=== PATIENT | female | born 1990 | race African-American/Black ===

== ENCOUNTER 2024-01-13 17:32 | Emergency (ER) | payer OTHER, SELFPAY ==
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
[2024-01-13 17:46] VITALS: BP 158/76; PULSE 86; RESP 16; TEMP 36.6; O2SAT 100
[2024-01-13 17:47] VITALS: BP 158/76; PULSE 86; RESP 16; TEMP 36.6; O2SAT 100
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
== END 2024-01-13 18:54 | disposition home or self-care (01) ==
PROVIDERS: Emergency Provider Nurse Practitioner Family; PCP Family Medicine
DX: S39.012A Strain of muscle, fascia and tendon of lower back, initial encounter (principal); M54.2 Cervicalgia; B35.8 Other dermatophytoses; Z79.899 Other long term (current) drug therapy; V89.2XXA Person injured in unspecified motor-vehicle accident, traffic, initial encounter
CPT/HCPCS: 72050; 72100; 99213; G0463

== ENCOUNTER 2025-08-26 08:04 | Emergency (ER) | payer OTHER, SELFPAY ==
--- OUTSIDE RECORDS SUMMARY | 2024-12-19 12:30 | XMS_ITS ---
Author Organization [employer] [place] ([address]) Address [address] [place] [address] Care Team Providers Care Diesel Automotive Technician Name Role Phone Ailyn Wymanh Primary Care Provider UnavailBobbi Watson Unavailable [phone] REASON FOR VISIT Chronic upper airway symptoms concerning for uncontrolled atopic disease, Chronic lower airways symptoms concerning for possible asthma Social History Sex Assigned At : Social History Observation Description Sex Assigned At Female Problems Problem Type SNOMED Code ICD Code Onset Dates Problem Status W/U Status Risk Notes Problem Allergic rhinitis caused by pollen (disorder) (22747662) Allergic rhinitis due to pollen (J30.1) Active confirmed Problem Allergic rhinitis caused by animal hair and dander ([id number]) Allergic rhinitis due to animal (cat) (dog) hair and dander (J30.81) Active confirmed Problem Allergic rhinitis (71082730) Other allergic rhinitis (J30.89) Active confirmed Problem Chronic allergic conjunctivitis (75167740) Other chronic allergic conjunctivitis (H10.45) Active confirmed Encounters Encounter Location Date Provider Diagnosis [facility] [address] [facility] [address] [place] [address] 12/19/2024 Bobbi Carolina Allergic rhinitis du e to pollen J30.1 ; Allergic rhinitis due to animal (cat) (dog) hair and dander J30.81 ; Other allergic rhinitis J30.89 ; Other chronic allergic conjunctivitis H10.45 ; Hypertrophy of nasal turbinates J34.3 ; Chronic rhinitis J31.0 ; Moderate persistent asthma, uncomplicated J45.40 ; Mild persistent asthma, uncomplicated J45.30 and Severe persistent asthma, uncomplicated J45.50 Assessments Encounter Date Diagnosis (ICD Code) Assessment Notes Treatment Notes Treatment Clinical Notes Section Notes 12/19/2024 Allergic rhinitis due to pollen (ICD-10 - J30.1) Given the history and symptoms, skin testing was performed to common aeroallergens to determine atopic status. clearly suffers from atopic disease based upon our skin testing and clinical history. Accordingly, we have introduced a new, aggressive medication regimen, discussed nasal washes and allergy-specific avoidance measures. We also discussed adjunctive therapies including subcutaneous, specific allergen immunotherapy as relates to the treatment and prevention of atopic disease. They are currently considering the risks, benefits and alternatives to this care. Risks: bleeding, infection, allergic reaction, anaphylaxis; Benefits: reduced need for medications, improved symptoms, disease modification. Alternatives: watch/wait, change medication regimen, improve allergy avoidance measures. Follow-up in 1 month for interval evaluation and management 12/19/2024 Allergic rhinitis due to animal (cat) (dog) hair and dander (ICD-10 - J30.81) Follow allergen avoidance, meds and consider SCIT as an adjunctive treatment to current regimen 12/19/2024 Other allergic rhinitis (ICD-10 - J30.89) Follow allergen avoidance, meds and consider SCIT as an adjunctive treatment to current regimen 12/19/2024 Other chronic allergic conjunctivitis (ICD-10 - H10.45) Given ocular signs and symptoms I encouraged allergy avoidance measures and meds as above. If symptoms persist, consider adding additional medications including intraocular antihistamine/mas t cell stabilizer, PRN and consider SCIT as an adjunctive measure 12/19/2024 Hypertrophy of nasal turbinates (ICD-10 - J34.3) 12/19/2024 Chronic rhinitis (ICD-10 - J31.0) 12/19/2024 Moderate persistent asthma, uncomplicated (ICD-10 - J45.40) 12/19/2024 Mild persistent asthma, uncomplicated (ICD-10 - J45.30) 12/19/2024 Severe persistent asthma, uncomplicated (ICD-10 - J45.50) Plan Of Treatment Treatment Notes Assessment Notes Allergic rhinitis due to pollen Given th e history and symptoms, skin testing was performed to common aeroallergens to determine atopic status. clearly suffers from atopic disease based upon our skin testing and clinical history. Accordingly, we have introduced a new, aggressive medication regimen, discussed nasal washes and allergy-specific avoidance measures. We also discussed adjunctive therapies including subcutaneous, specific allergen immunotherapy as relates to the treatment and prevention of atopic disease. They are currently considering the risks, benefits and alternatives to this care. Risks: bleeding, infection, allergic reaction, anaphylaxis; Benefits: reduced need for medications, improved symptoms, disease modification. Alternatives: watch/wait, change medication regimen, improve allergy avoidance measures. Follow-up in 1 month for interval evaluation and management Allergic rhinitis due to ani mal (cat) (dog) hair and dander Follow allergen avoidance, meds and consider SCIT as an adjunctive treatment to current regimen Other allergic rhinitis Follow allergen avoidance, meds and consider SCIT as an adjunctive treatment to current regimen Other chronic allergic conjunctivitis Gi nancy ocular signs and symptoms I encouraged allergy avoidance measures and meds as above. If symptoms persist, consider adding additional medications including intraocular antihistamine/mast cell stabilizer, PRN and consider SCIT as an adjunctive measure Next Appt Details Follow Up: 4 Weeks, Reason: Evaluation and Management Progress Notes * Didier CLARKDOB: [birth year] (34 yo F)Acc No.[id number]:12/19/2024 Progress Notes Patient: Sheri NINOkeke Provider: Anthony Carolina MD :1990 A ge:34 Y S ex:Female Date:12/19/2024 Address:[address] [place], [place] [id number] Pcp:Andres Wyman Subjective: * Chief Complaints: * 1 . Chronic upper airway symptoms concerning for uncontrolled atopic disease. 2. Chronic lower airways symptoms concerning for possible asthma. * HPI: * Introduction: HPI: x . * ROS: A LLERGY: Positive p er the HPI and history, otherwise unremarkable.? S PECIAL SENSES: Positve for n one. C ONSTITUTIONAL: Positive for n one. E NT: Positive p er the HPI and history, otherwise unremarkable.? R ESPIRATORY: Positive p er the HPI and history, otherwise unremakable.? O PHTHALMOLOGY: Positive for p er the HPI and history, otherwise unremarkable. E NDOCRINOLOGY: Positive for n one. C ARDIOLOGY: Positive for n one. G ASTROENTEROLOGY: Positive for n one. U ROLOGY: Positive for n one. D ERMATOLOGY: Positive for p er the HPI and history, otherwise unremakable. N EUROLOGY: Positive for n one. H EMATOLOGY/LYMPH: Positive for n one. M USCULOSKELETAL: Positive for n one. P SYCHOLOGY: Positive for n one. A ll other review of systems per the HPI and history, otherwise unremarkable. * Medical History: Objective: * Vitals: * Examination: G eneral examination: General appearance: p leasant, well-developed, well-nourished. HEENT: p upils equal, round, and reactive to light and accommodation, conjunctiva are injected bilaterally, no tenderness to palpation of the sinuses, TM's without evidence of acute infection, turbinates 2+ swollen and pale inferiorly bilaterally, clear rhinorrhea is present, no polyps noted, no septal perforation, posterior oropharynx is erythematous and cobblestoning is present, erythema on pharyngeal wall, no exudates, no tongue swelling, and uvula is midline. Oral cavity: n ormal, no lesions. Neck, thyroid : s upple, non-tender, no anterior cervical lymphadenopathy. Breasts : n ot performed. Heart: R RR, S1-S2, no murmurs, no rubs, no gallops. Lungs: c lear to auscultation and percussion in all lung ramirez, no wheezes or crackles. Abdomen: s oft, NT/ND, normal active bowel sounds. Neurologic exam: u nremarkable. Skin: n ormal, no rash, dermatographism, urticaria, angioedema. Peripheral pulses: n ormal (2+) bilaterally. Back: n ormal. Extremities: n ormal ROM, no clubbing, no cyanosis, no edema. Genitalia: n ot performed. Assessment: * Assessment: 1. A llergic rhinitis due to pollen - J30.1 (Primary) 2 . A llergic rhinitis due to animal (cat) (dog) hair and dander - J30.81 3 . O ther allergic rhinitis - J30.89 4 . O ther chronic allergic conjunctivitis - H10.45 5 . H ypertrophy of nasal turbinates - J34.3 6 . C hronic rhinitis - J31.0? 7. M oderate persistent asthma, uncomplicated - J45.40 8 . M ild persistent asthma, uncomplicated - J45.30 9 . S evere persistent asthma, uncomplicated - J45.50 Plan: * Treatment: 2. A llergic rhinitis due to animal (cat) (dog) hair and dander Notes: Follow allergen avoidance, meds and consider SCIT as an adjunctive treatment to current regimen 3. O ther allergic rhinitis Notes: Follow allergen avoidance, meds and consider SCIT as an adjunctive treatment to current regimen 4. O ther chronic allergic conjunctivitis Notes: Given ocular signs and symptoms I encouraged allergy avoidance measures and meds as above. If symptoms persist, consider adding additional medications including intraocular antihistamine/mast cell stabilizer, PRN and consider SCIT as an adjunctive measure * Procedure Codes: 9 5004 PRICK TESTS, Units: 72.00 , 56197 INTRADERMAL TESTS, 37339 MEASURE BLOOD OXYGEN LEVEL, 97098 SELF-MGMT EDUC & TRAIN, 1 PT, S9441 ASTHMA ED NON-MD PROV PER SESSION, 27762 PT-FOCUSED HLTH RISK ASSMT, G8427 DOC MEDS VERIFIED W/PT OR RE * Preventive Medicine: Counseling: M edication instruction: W atch for side effects of prescribed medications, Nasal steroid/antihistamine instruction: avoid septum. E ducation: G ENERAL EDUCATION: Our staff spent an additional 30 minutes in direct contact with the patient educating them on their current diagnoses and proper treatment and prevention of symptoms and the proper use of medications. E ducation 2: A RC EDUCATION: Our staff discussed the appropriate allergen avoidance measures and medication utilization including upper airway hygiene with daily nasal washes given the patient's clinical status and diagnoses. SCIT EDUCATION: Discussed allergy immunotherapy including the relative risks, benefits and alternatives to this treatment as an adjunctive measure to current therapy, Allergy Immunotherapy: Risks: bleeding, infection, allergic reaction, anaphylaxis = severe allergic reaction that can cause ; Benefits: reduced need for medications, improved symptoms, disease modification. Alternatives: watch/wait, change medication regimen, improve allergy avoidance measures, Our staff discussed the warning signs of anaphylaxis and the indications to use self-injectable epinephrine and seek urgent or emergent care. P atient education material sent to portal? Y es * Follow Up: 4 Weeks (Reason: Evaluation and Management) * Billing Information: * Visit Code: * Procedure Codes: 25048 PRICK TESTS. Units: 72.00. 50339 INTRADERMAL TESTS. 22779 MEASURE BLOOD OXYGEN LEVEL. 18249 SELF-MGMT EDUC & TRAIN, 1 PT. S9441 ASTHMA ED NON-MD PROV PER SESSION. 55871 PT-FOCUSED HLTH RISK ASSMT. G8427 DOC MEDS VERIFIED W/PT OR RE. * Electronic signature of Sofia Carolina MD on 08/26/2025 at 08:15 AM CDT Sign off status: Pending * Provider: Anthony Carolina MD Date: 0 12/19/2024 Generated for Sofiya du/Katiuska/Joyce on: 08:15 AM CDT History and Physical Notes * HPI (History of Present Illness) Category Sub-Category Detail Notes Category Not es *Introduction HPI: x Examination Category Sub-Category Detail Notes Category Not es General examination HEENT: pupils equal , round, and reactive to light and accommodation, conjunctiva are injected bilaterally, no tenderness to palpation of the sinuses, TM's without evidence of acute infection, turbinates 2+ swollen and pale inferiorly bilaterally, clear rhinorrhea is present, no polyps noted, no septal perforation, posterior oropharynx is erythematous and cobblestoning is present, erythema on pharyngeal wall, no exudates, no tongue swelling, and uvula is midline Neck, thyroid : supple, non-tender, no anterior cervical lymphadenopathy Heart: RRR, S1-S2, no murmu rs, no rubs, no gallops Lungs: clear to auscultatio n and percussion in all lung ramirez, no wheezes or crackles Abdomen: soft, NT/ND, normal active bowel sounds Extremities: normal ROM, no clubb ing, no cyanosis, no edema General appearance: pleasant, well-devel oped, well-nourished Skin: normal, no rash, jessy matographism, urticaria, angioedema Neurologic exam: unremarkable Oral cavity: normal, no lesions Breasts : not performed Peripheral pulses: normal (2+) bilatera lly Back: normal Genitalia: not performed
--- OUTSIDE RECORDS SUMMARY | 2025-01-23 12:30 | XMS_ITS ---
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 Name Role Phone Andres Wyman Primary Care Provider UnavailBobbi Watson Unavailable [phone] REASON FOR VISIT Food Allergy Social History Sex Assigned At : Social History Observation Description Sex Assigned At Female Encounters Encounter Location Date Provider Diagnosis [facility] [address] [place] [address] 01/23/2025 Bobbi Carolina Allergic rhinitis du e to pollen J30.1 ; Idiopathic urticaria L50.1 ; Dermatitis due to ingested food L27.2 ; Allergic rhinitis due to animal (cat) (dog) hair and dander J30.81 ; Other allergic rhinitis J30.89 and Other chronic allergic conjunctivitis H10.45 Assessments Encounter Date Diagnosis (ICD Code) Assessment Notes Treatment Notes Treatment Clinical Notes Section Notes 01/23/2025 Allergic rhinitis due to pollen (ICD-10 - J30.1) Given the history and symptoms, skin testing was performed to common aeroallergens to determine atopic status. Didier clearly suffers from atopic disease based upon our skin testing and clinical history. Accordingly, we have introduced a new, aggressive medication regimen, discussed nasal washes and allergy-specific avoidance measures. 01/23/2025 Idiopathic urticaria (ICD-10 - L50.1) Considerations for hives include autoimmune, viral, stress, or idiopathic. Plan to order labwork for further evaluation. Start treatment with Zyrtec 10 mg BID, Famotidine 20 mg BID. Food may be playing a role and continue current avoidance until we get lab results. Follow-up in 1 month. 01/23/2025 Dermatitis due to ingested food (ICD-10 - L27.2) skin testing showed sensitivity to almond, pistachio, hazelnut, walnut, green arellano, milk, oat, pork, sweet potato, rice, salmon, and sesame seed. ImmunoCAPs ordered for further evaluation. For now, continue avoidance of sesame seeds and tree nuts. 01/23/2025 Allergic rhinitis due to animal (cat) (dog) hair and dander (ICD-10 - J30.81) Follow allergen avoidance, meds and consider SCIT as an adjunctive treatment to current regimen 01/23/2025 Other allergic rhinitis (ICD-10 - J30.89) 01/23/2025 Other chronic allergic conjunctivitis (ICD-10 - H10.45) Given ocular signs and symptoms I encouraged allergy avoidance measures and meds as above. If symptoms persist, consider adding additional medications including intraocular antihistamine/mast cell stabilizer, PRN Plan Of Treatment Treatment Notes Assessment Notes Allergic rhinitis due to pollen Given th e history and symptoms, skin testing was performed to common aeroallergens to determine atopic status. Didier clearly suffers from atopic disease based upon our skin testing and clinical history. Accordingly, we have introduced a new, aggressive medication regimen, discussed nasal washes and allergy-specific avoidance measures. Idiopathic urticaria Considerations for hives include autoimmune, viral, stress, or idiopathic. Plan to order labwork for further evaluation. Start treatment with Zyrtec 10 mg BID, Famotidine 20 mg BID. Food may be playing a role and continue current avoidance until we get lab results. Follow-up in 1 month. Dermatitis due to ingested food skin shavonne ting showed sensitivity to almond, pistachio, hazelnut, walnut, green arellano, milk, oat, pork, sweet potato, rice, salmon, and sesame seed. ImmunoCAPs ordered for further evaluation. For now, continue avoidance of sesame seeds and tree nuts. Allergic rhinitis due to ani mal (cat) (dog) hair and dander Follow allergen avoidance, meds and consider SCIT as an adjunctive treatment to current regimen Other chronic allergic conjunctivitis Gi nancy ocular signs and symptoms I encouraged allergy avoidance measures and meds as above. If symptoms persist, consider adding additional medications including intraocular antihistamine/mast cell stabilizer, PRN Next Appt Details Follow Up: 4 Weeks, Reason: Evaluation and Management Progress Notes * Didier CLARKDOB: [birth year] (34 yo F)Acc No.[id number]:01/23/2025 Progress Notes Patient: Didier NINO Provider: Anthony Carolina MD :1990 A ge:34 Y S ex:Female Date:01/23/2025 Address:[address] [place], [place] [id number] Pcp:Andres Wyman Subjective: * Chief Complaints: * 1 . Food Allergy. * HPI: * Introduction: HPI: A ronald Clark, a 34 year old with HTN, chronic urticaria, and food allergy presenting for evaluation of urticaria. She is alone for today's visit. Dana cardenas has a long history of chronic urticaria. She was evaluated by an educational aid in 2016 and at that time, concern that hives were related to food.After stopping almonds, soy products, lenora, sunflower seeds, tree nuts, eggs, shellfish hives started to improve and no flares until about 1 month ago. She is currently avoidingsunflower and tree nuts. She develops hives with tree nuts. Other food has been added back into her diet. H laurence are erythematous and rasied a few centimeters in size. HIves are pruritic and occurring on a daily basis. Skin is currently clear. Hives appear on her extremities and trunk.She is taking Benadryl on a daily basis when hives occur with improvement. Eating TV dinners or processed food causes hives on her face. S he develops rashes with exposure to products containing sunflower seeds or oil. She reports yeast infection from sunflower oil in a body wash. Deodorants with sunflower oil cause a rash. S he has a history of eczema on her wrists. She was evaluated by dermatology and prescribed topical steroids. S he denies a history of physician-diagnosed r ecurrent sinusitis or otitis media, recurrent pneumonia, asthma/RAD, eczema, medication allergies, contact dermatitis, latex allergy, eosinophilic esophagitis or stinging insect hypersensitivity,. * ROS: A LLERGY: Positive p er [...] General appearance: p leasant, well-developed, well-nourished. HEENT: conjunctiva are clear bilaterally, no tenderness to palpation of the sinuses, TM's without evidence of acute infection, turbinates with pink mucosa, c lear rhinorrhea is present, no polyps noted, no septal perforation, posterior oropharynx is clear, no tongue swelling, and uvula is midline. Oral cavity: n ormal, no lesions. Neck, thyroid : s upple, non-tender, no anterior cervical lymphadenopathy. Breasts : n ot performed. Heart: R RR, S1-S2, no murmurs, no rubs, no gallops. Lungs: c lear to auscultation and percussion in all lung ramirez, no wheezes or crackles. Neurologic exam: u nremarkable. Skin: n ormal, no rash, dermatographism, urticaria, angioedema. Peripheral pulses: n ormal (2+) bilaterally. Back: n ormal. Extremities: n ormal ROM, no clubbing, no cyanosis, no edema. Genitalia: n ot performed. Assessment: * Assessment: 1. I diopathic urticaria - L50.1 (Primary) 2 . A llergic rhinitis due to pollen - J30.1 3 . D ermatitis due to ingested food - L27.2 4 .?Allergic rhinitis due to animal (cat) (dog) hair and dander - J30.81 5 . O ther allergic rhinitis - J30.89 6 . O ther chronic allergic conjunctivitis - H10.45 Plan: * Treatment: 2. A llergic rhinitis due to pollen Notes: Given the history and symptoms, skin testing was performed to common aeroallergens to determine atopic status. Didier clearly suffers from atopic disease based upon our skin testing and clinical history. Accordingly, we have introduced a new, aggressive medication regimen, discussed nasal washes and allergy-specific avoidance measures. 3. D ermatitis due to ingested food Notes: skin testing showed sensitivity to almond, pistachio, hazelnut, walnut, green arellano, milk, oat, pork, sweet potato, rice, salmon, and sesame seed. ImmunoCAPs ordered for further evaluation. For now, continue avoidance of sesame seeds and tree nuts. 4. A llergic rhinitis due to animal (cat) (dog) hair and dander Notes: Follow allergen avoidance, meds and consider SCIT as an adjunctive treatment to current regimen 5. O ther chronic allergic conjunctivitis Notes: Given ocular signs and symptoms I encouraged allergy avoidance measures and meds as above. If symptoms persist, consider adding additional medications including intraocular antihistamine/mast cell stabilizer, PRN * Procedure Codes: 9 5004 PRICK TESTS, Units: 85.00 , 09351 PT-FOCUSED [facility] RISK ASSMT, G8427 DOC MEDS VERIFIED W/PT [...] Management) * Billing Information: * Visit Code: 74997 Office Visit, New Pt., Level 4. Modifiers: 25 * Procedure Codes: 15217 PRICK TESTS. Units: 85.00. 10287 PT-FOCUSED [facility] RISK ASSMT. G8427 DOC MEDS VERIFIED W/PT OR RE. * Electronic signature of Sofia Carolina MD on 08/26/2025 at 08:15 AM CDT Sign off status: Pending * Provider: Anthony Carolina MD Date: 0 01/23/2025 Generated for Sofiya du/Katiuska/Daniellesmitting on: 1 08:15 AM CDT History and Physical Notes * HPI (History of Present Illness) Category Sub-Category Detail Notes Category Not es *Introduction HPI: Didier Clark , a 34 year old with HTN, chronic urticaria, and food allergy presenting for evaluation of urticaria. She is alone for today's visit. Didier has a long history of chronic urticaria. She was evaluated by an educational aid in 2016 and at that time, concern that hives were related to food. After stopping almonds, soy products, lenora, sunflower seeds, tree nuts, eggs, shellfish hives started to improve and no flares until about 1 month ago. She is currently avoiding sunflower and tree nuts. She develops hives with tree nuts. Other food has been added back into her diet. Hives are erythematous and rasied a few centimeters in size. HIves are pruritic and occurring on a daily basis. Skin is currently clear. Hives appear on her extremities and trunk. She is taking Benadryl on a daily basis when hives occur with improvement. Eating TV dinners or processed food causes hives on her face. She develops rashes with exposure to products containing sunflower seeds or oil. She reports yeast infection from sunflower oil in a body wash. Deodorants with sunflower oil cause a rash. She has a history of eczema on her wrists. She was evaluated by dermatology and prescribed topical steroids. She denies a history of physician-diagnosed recurrent sinusitis or otitis media, recurrent pneumonia, asthma/RAD, eczema, medication allergies, contact dermatitis, latex allergy, eosinophilic esophagitis or stinging insect hypersensitivity, Examination Category Sub-Category Detail Notes Category Not es General examination HEENT: conjunctiva are clear bilaterally, no tenderness to palpation of the sinuses, TM's without evidence of acute infection, turbinates with pink mucosa, clear rhinorrhea is present, no polyps noted, no septal perforation, posterior oropharynx is clear, no tongue swelling, and uvula is midline Neck, thyroid : supple, non-tender, no anterior cervical lymphadenopathy Heart: RRR, S1-S2, no murmu rs, no rubs, no gallops Lungs: clear to auscultatio n and percussion in all lung ramirez, no wheezes or crackles Abdomen: Extremities: normal ROM, no clubb ing, no cyanosis, no edema General appearance: pleasant, well-devel oped, well-nourished Skin: normal, no rash, jessy matographism, urticaria, angioedema Neurologic exam: unremarkable Oral cavity: normal, no lesions Breasts : not performed Peripheral pulses: normal (2+) bilatera lly Back: normal Genitalia: not performed
--- OUTSIDE RECORDS SUMMARY | 2025-08-26 08:13 | XMS_ITS | Clinical Summary ---
Author Organization [facility] Address [address] [place] [address] Care Team Providers Care Car Hop Name Role Phone Nohemi Vallecillo MD Unavailable Source Comments [facility],non-owned Affiliates and Associated Physician Practices is amultiple site organization consisting of ambulatory clinics and hospital sitesin [place], [place], [place] and [place]. This disclosure is being madepursuant to the Care Everywhere program and may not contain all information available regarding this patient. Last updated 18.[facility] Allergies Active Allergy Reactions Criticality Noted Date Comments Amoxicillin Rash Medium 04/04/2019 Nitrofurantoin 02/16/2012 Sulfa Drugs Rash Low 04/27/2011 Medications * Be aware that medications may not be up to date on this document. Alwaysverify current medications with the patient. diphenhydrAMINE (BENADRYL) 25 MG tablet Take 25 mg by mouth every 4 hours as needed for Itching Active cetirizine (ZYRTEC) 10 MG tablet Take 1 tablet by mouth once daily 03/26/2019 Active valACYclovir (VALTREX) 1 GM tabletIndicatio ns:HSV-2 (herpes simplex virus 2) infection Take 1 tablet by mouth once daily 90 tablet 4 07/31/2019 Active Active Problems Problem Noted Date Diagnosed Date Vitamin D deficiency 03/26/2019 Class 3 severe obesity due t o excess calories without serious comorbidity with body mass index (BMI) of 40.0 to 44.9 in adult 05/16/2018 Mild depression 05/16/2018 Pilonidal cyst 11/01/2017 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 Thyroid nodule 12/23/2015 Seasonal allergic rhinitis 03/26/2014 Obesity (BMI 35.0-39.9 without comorbidity) 04/2013 LGSIL (low grade squamous in traepithelial lesion) on Pap smear 02/14/2013 Cervical high risk HPV (human papillomavirus) te st positive 02/14/2013 Ulcer aphthous oral 11/03/2010 Family history of type 2 diabetes mellitus 11/03 Genital herpes in women 11/19/2009 Screening for condition 10/08/2008 Overview (08/07/2015): Pap Smear: Date:09/24/08, 11/03/2010 Resolved Problems Problem Noted Date Diagnosed Date Resolved Date Obesity 05/14/2013 12/23/2015 Abscess of buttock, left 05/12/2011 Immunizations Immunization Administration Dates Next Due Human Papilloma Virus Quadrivalent Vaccine 02/05,02/09/2012,11/18/2011 INFLUENZA VACCINE, QUADR. (A FLURIA, FLUZONE QUADRIVALENT; 6MO+) (IIV4) 08/16/2014 INFLUENZA VACCINE, QUADR. (F LUZONE; FLULAVAL; FLUARIX; AFLURIA QUADRIVALENT; 6MO+), 0.5 ML (IIV4) 10/12/2017 TDAP (7yrs+) 04/16/2011 Family History Medical History Relation Name Comments High Cholesterol Father Diabetes - Type 2 Maternal Aunt Thyroid Disease Maternal Aunt Thyroidecto my Diabetes - Type 2 Maternal Grandmother Hypertension Maternal Grandmother Thyroid Disease Maternal Grandmother Thyr oidectomy Diabetes - Type 2 Maternal Uncle 1 Diabetes - Type 2 Maternal Uncle 2 Diabetes - Type 2 Maternal Uncle 3 Asthma Mother Hypertension Mother Obesity Mother Pre- DM Relation Name Status Comments Brother 1 Alive Brother 2 Alive Father Alive Maternal Aunt Alive Maternal Grandfather Maternal Grandmother Maternal Uncle 1 Alive Maternal Uncle 2 Alive Maternal Uncle 3 Alive Mother Alive Sister Alive Social History Tobacco Use Types Packs/Day Years Used Date Smoking Tobacco: Never Smokeless Tobacco: Never Alcohol Use Standard Drinks/Week Comments Yes 0.8 (1 standard drink = 0.6 oz p ure alcohol) rarely Comments No Sex and Gender Information Value Date Recorded Sex Assigned at Not on file Legal Sex Female 4:25 AM 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 Gender Identity Not on file Sexual Orientation Not on file 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 Industry Job Start Date Job End 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 Not on file Not on f ile Not on file Last Filed Vital Signs Vital Sign Reading Time Taken Comments Blood Pressure 120/74 06/23/2022 8:17 AM CDT Pulse 80 06/23/2022 8:17 AM CDT Temperature 36.8 C (98.3 F) 04/04/2019 9:43 AM CDT Respiratory Rate 16 10/18/2017 11:42 AM ONCOLOGY RN Oxygen Saturation 98% 06/23/2022 8:17 AM CDT Inhaled Oxygen Concentration - - Weight 114.8 kg (253 lb) 06/23/2022 8:17 AM CDT Height 160 cm (5' 3) 06/23/2022 8:17 AM CDT Body Mass Index 44.82 06/23/2022 8:17 AM CDT Plan of Treatment Health Maintenance Due Date Last Done Comments HEPATITIS B VACCINE (1 of 3 - 19+ 3-dose series) 2007 DTAP/TDAP/TD VACCINES (2 - Td or Tdap) 04/16/2021 04/16/2011 PAP with HPV 07/31/2024 07/31/2019, /, 02/05/2013 DEPRESSION SCREENING 11/07/2024 COVID-19 VACCINE (2024- season) 2025 07/30/2021, 07/02/2021 INFLUENZA VACCINE (#1) 2025 , 08/07/2021, 12/06/2019, Additional history exists ZOSTER VACCINE (1 of 2) 2038 HPV VACCINE Completed 02/05/2013, 02/2012, 11/18/2011 HEPATITIS C SCREENING Completed 01/27/2018, 016 HIV SCREENING Completed 01/27/2018, 06/2016, 11/18/2011, Additional history exists HIB VACCINE Aged Out No longer eligi ble based on patient's age to complete this topic MENINGOCOCCAL (Group B) VACCINE SHARED DECISION-MAKING Aged Out No longer eligible based on patient's age to complete this topic MENINGOCOCCAL GROUPS A/C/Y/W VACCINE Aged Out No longer eligible based on patient's age to complete this topic PNEUMOCOCCAL VACCINE Aged Out No long er eligible based on patient's age to complete this topic Procedures Procedure Name Priority Date/Time Associated Diagnosis Comments PAP IG LB+CT+NG+TV+HPV APTIMA RFLX 16,18/45 Routine 07/31/2019 5:00 PM CDT Well woman exam Screening for HPV (human papillomavirus) Possible exposure to STD HEPATITIS C ANTIBODY Routine 01/27/2018 11:45 AM CDT Exposure to venereal disease HIV-1 HIV-2 ANTIGEN/ANTIBODY W RFLX Routine 01/27/2018 11:45 AM CDT Exposure to venereal disease from Last 3 Months or Most Recently Relevant to Health Maintenance Results * PAP IG LB+CT+NG+TV+HPV APTIMA RFLX 16,18/45 (07/31/2019 5:00 PM CDT) Diagnosis [facility] ACCOUNT BILL Comment: NEGATIVE FOR INTRAEPITHELIAL LESION OR MALIGNANCY. CELLULAR CHANGES ASSOCIATED WITH INFLAMMATION ARE PRESENT. THIS SPECIMEN WAS RESCREENED PART OF OUR OFFICE INSPECTOR PROGRAM. Specimen Adequacy [facility] ACCOUNT BILL Comment: Satisfactory for evaluation. Endocervical and/or squamous metaplastic cells (endocervical component) are present. Clinician Provided ICD10 [facility] ACCOUNT BILL Comment: Z01.419 Z11.51 Z20.2 B00.9 Performed by [facility] ACCOUNT BILL Comment:Temitope Andrew, Cyto technologist (ASCP) QC Reviewed by [facility] ACCOUNT BILL Comment:Myrna Marquez pervisory Project Manager Retail (ASCP) Comment . [facility] ACCOUNT BILL Note [facility] ACCOUNT BILL Comment: The Pap smear is a screening test designed to aid in the detection of premalignant and malignant conditions of the uterine cervix. It is not a diagnostic procedure and should not be used as the sole means of detecting cervical cancer. Both false-positive and false-negative reports do occur. . IGLBP CPT Code Automation [facility] ACCOUNT BILL Comment: This liquid based ThinPrep(R) pap test was screened with the use of an image guided system. Human papillomavirus Aptima Negative Negative [facility] ACCOUNT BILL Comment: This test detects fourteen high-risk HPV types (16/18/31/33/35/39/45/ 51/52/56/58/59/66/68) without differentiation. Chlamydia trachomatis ARNALDO Negative Negative [facility] ACCOUNT BILL GC ARNALDO Negative Negative [facility] ACCOUNT BILL Trichomonas vaginalis by ARNALDO Negative Negative [facility] ACCOUNT BILL ENTIRE VAGINA / Unknown 07/31/2019 5:00 PM CDT 07/31/2019 Narrative [facility] ACCOUNT BILL - 08/03/2019 1:08 PM CDT Source.............Endocervix No. of containers..01 ThinPrep Vial Resulting Agency Comment Lab Testing performed at: [facility] [phone] [place] Izabel Oneill DO LAB - PATHOLOGY/CYTOLOGY ORDERAB LES Final Result [facility] ACCOUNT BILL [address] [place] [address] * HIV-1 HIV-2 ANTIGEN/ANTIBODY W RFLX (01/27/2018 11:45 AM CDT) HIV Screen 4th Generation w Reflex Non Reactive Non Reactive [facility] ACCOUNT BILL Blood BLOOD SPECIMEN / Unknown 01/27/2018 11:45 AM CDT 01/27/2018 Narrative Resulting Agency [facility] [address] [phone] [place] Amina Brown MD LAB - SEROLOGY ORDERABLES Final Result [facility] ACCOUNT BILL [address] [place] [address] * HEPATITIS C ANTIBODY (01/27/2018 11:45 AM CDT) Hepatitis C Antibody Non Reactive Non Reactive [facility] ACCOUNT BILL Comment: Non Reactive - Antibodies to Hepatitis C virus (HCV) were no t detected, result does not exclude early acute HCV infection. Blood BLOOD SPECIMEN / Unknown 01/27/2018 11:45 AM CDT 01/27/2018 Narrative Resulting Agency Comment [facility] [address] [phone] [place] Amina Brown MD LAB - CHEMISTRY ORDERABLES Destinee cota Result [facility] ACCOUNT BILL [address] [place] [address] from Last 3 Months or Most Recently Relevant to Health Maintenance Insurance ANTHEM * Guarantor: APRYL CLARK Account Type Relation to Patient Date of Phone Billing Address Personal/Family 1990 [address] [place] [address] Care Teams Car Hop Relationship Specialty Start Date End Date Nohemi Vallecillo MD [address] [place] [address] Obstetrics and Gynecology 06/23/22
--- OUTSIDE RECORDS SUMMARY | 2025-08-26 08:13 | XMS_ITS | Clinical Summary ---
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 5 Active lisinopriL (PRINIVIL) 20 mg tablet TAKE 1 TABLET BY MOUTH EVERY DAY DIRECTED (DOSE INCREASE) 5 Active BD Ultra-Fine Mini Pen Needle 31 gauge x 3/16 Needle OK FOR GENERIC PEN NEEDLES TO GO WITH SAXENDA DAILY. 5 Active fluticasone propionate (FLONASE) 50 mcg/spray [place], Suspension nasal inhaler Administer 2 Sprays in each nostril daily. Active valACYclovir (Valtrex) 500 mg tabletIndicatio ns:HSV infection Take 1 Tablet (500 mg) by mouth daily. 90 Tablet 3 5 Active metroNIDAZOLE (FLAGYL) 500 mg tablet Take 1 Tablet (500 mg) by mouth 2 times daily. take with meals, avoid alcohol during treatment and for 3 days after last dose 14 Tablet 5 Active Active Problems Problem Noted Date Diagnosed Date Essential hypertension 08/19/2021 Overview (03/18/2025): Now controlled without medication. Blood Pressure 120/74 06/23/2022 8:17 AM CDT Genital herpes in women 11/19/2009 Encounters Date Type Department Care Team Description 07/24/2025 External Device Data [facility]CTION Provider, Abstract 06/26/2025 External Device Data [facility] Provider, Abstract 06/25/2025 External Device Data [facility] Provider, Abstract 06/12/2025 External Device Data [facility] Provider, Abstract 06/11/2025 External Device Data [facility] Provider, Abstract from Last 3 Months Social History Tobacco Use Types Packs/Day Years Used Date Smoking Tobacco: Never Smokeless Tobacco: Never Comments No Sex and Gender Information Value Date Recorded Sex Assigned at Not on file Legal Sex Female 1:41 PM CDT Gender Identity Not on file Sexual Orientation Not on file Last Filed Vital Signs Vital Sign Reading Time Taken Comments Blood Pressure 132/78 03/18/2025 3:20 PM CDT Pulse 78 03/18/2025 3:20 PM CDT Temperature 36.8 C (98.2 F) 04/13/2022 6:11 PM CDT Respiratory Rate 15 03/18/2025 3:20 PM CDT Oxygen Saturation 99% 03/18/2025 3:20 PM CDT Inhaled Oxygen Concentration - - Weight 116.6 kg (257 lb) 03/18/2025 3:20 PM CDT Height 160 cm (5' 3) 04/13/2022 6:11 PM CDT Body Mass Index 45.53 04/13/2022 6:11 PM CDT Plan of Treatment Upcoming Encounters Date Type Department Care Team (Late st Contact Info) Description 03/24/2026 2:45 PM CDT Office Visit [facility] ROOM ATTENDANT - [facility] [address] [place] [address] Thalia Aguirre, DO [address] [place] [address] Health Maintenance Due Date Last Done Comments Pre-Diabetes and Diabetes Screening 1988 HEPATITIS B VACCINES (1 of 3 - 19+ 3-dose series) 2007 HPV/Cotest (21-29) 2009 CERVICAL CANCER SCREENING 2018 HPV/Cotest (30-65) 2018 PAP SMEAR 2018 INFLUENZA VACCINE (#1) 2025 5, 08/17/2023, 08/19/2021, Additional history exists COVID-19 Vaccine ( - 2024-2 6 season) 2025 07/30/2021, 07/02/2021 DTAP/TDAP/TD VACCINES (4 - T d or Tdap) 01/31/2033 01/31/2023, 03/30/2021, 04/16/2011 HPV VACCINES Completed 02/05/2013, 02/2012, 11/18/2011 Insurance [facility]
--- OUTSIDE RECORDS SUMMARY | 2025-08-26 08:13 | XMS_ITS | Clinical Summary ---
Author Organization [facility] Address [address] [address] Phone Care Team Providers Care Insurance Compliance Analyst Name Role Phone Unknown, Notinfile Primary Care Provider Unavail able Allergies No known active allergies Social History Tobacco Use Types Packs/Day Years Used Date Smoking Tobacco: Never Assessed Personal Safety Answer Date Recorded Getting School Help Needed Not on file 11/10 Comments Unknown Sex and Gender Information Value Date Recorded Sex Assigned at Not on file Legal Sex Female 11:55 AM CDT Gender Identity Not on file Sexual Orientation Not on file Plan of Treatment Health Maintenance Due Date Last Done Comments Cervical Cancer Screening 1988 Depression Screening 1988 Hepatitis C Screening 1988 Varicella Vaccines (1 of 2 - 13+ 2-dose series) 2001 Hepatitis B Screening 2006 Regular Well Visit/Exam 18-64 2006 Covid-19 Vaccine ( season) 2025 07/30/2021, 07/02/2021 Influenza Vaccine (#1) 2025 , 12/06/2019, 10/12/2017, Additional history exists DTaP/Tdap/Td Vaccine (4 - Td or Tdap) 03/30/2031 03/30/2021, 10/16/2014, 04/16/2011 HPV Vaccines Completed 02/05/2013, 02/2012, 11/18/2011 Pneumococcal vaccine <65 Aged Out No longer eligible based on patient's age to complete this topic Insurance BLUE ACCESS OOS BLUE ACCESS OOS BLUE ACCESS OOS Care Teams Insurance Compliance Analyst Relationship Specialty Start Date End Date Unknown, Notinfile PCP - General 04/22/22
--- OUTSIDE RECORDS SUMMARY | 2025-08-26 08:13 | XMS_ITS | Encounter Summary ---
Author Organization [facility] Address [address] [place] [address] Care Team Providers Care Injection Moulding Machine Operator Name Role Phone Amina Brown MD Primary Care Provider [phone] Nohemi Vallecillo MD Unavailable Amina Brown MD Unavailable [phone] Encounter Details Date Type Department Care Team (Late st Contact Info) Description 10/26/2017 [facility] Outpatient Visit [facility] [address] [place] [address] [place] [address] [place] [id number] Social History Tobacco Use Types Packs/Day Years Used Date Smoking Tobacco: Never Smokeless Tobacco: Never Alcohol Use Standard Drinks/Week Comments Yes 0.8 (1 standard drink = 0.6 oz p ure alcohol) rarely Comments No Sex and Gender Information Value Date Recorded Sex Assigned at Not on file Legal Sex Female 4:25 AM RN CARDIOVASCULAR ICU Gender Identity Not on file Sexual Orientation Not on file documented as of this encounter Functional Status * Is person deaf or have serious hearing difficulty? Answer Date of Assessment Author No 10/18/2017 11:45 AM Iliana Gilbert RN * Is person blind or have serious difficulty seeing? Answer Date of Assessment Author No 10/18/2017 11:45 AM Iliaan Gilbert RN * Does person have serious difficulty walking/climbing stairs? Answer Date of Assessment Author No 10/18/2017 11:45 AM Iliana Gilbert RN * Does person have difficulty dressing/bathing? Answer Date of Assessment Author No 10/18/2017 11:45 AM Iliana Gilbert RN * Does person have difficulty doing errands alone? Answer Date of Assessment Author No 10/18/2017 11:45 AM Iliana Gilbert RN documented as of this encounter Mental Status * Does person have difficulty concentrating/remembering/making decisions? Answer Entry Date Author No 10/18/2017 11:45 AM Iliana Gilbert RN documented in this encounter Plan of Treatment Not on file documented as of this encounter Visit Diagnoses Not on filedocumented in this encounter Care Teams Injection Moulding Machine Operator Relationship Specialty Start Date End Date Amina Brown MD PCP - General 10/08/08 06/22/22 Amina Brown MD [address] [place] [phone] PCP - Attributed-[employer] 01/14/18 01/20/20 Nohemi Vallecillo MD [address] [place] [id number] Obstetrics and Gynecology 06/23/22 documented as of this encounter
--- OUTSIDE RECORDS SUMMARY | 2025-08-26 08:14 | XMS_ITS | Clinical Summary ---
Author Organization [facility] Address [address] [place] [address] Phone [email or web address] Care Team Providers Care Double End Chucking Machine Operator Name Role Phone Unavailable Primary Care Provider Unavailabl e Allergies Active Allergy Reactions Criticality Noted Date Comments Amoxicillin Hives,Itching,Rash Low 11/23/2019 Penicillins Hives 03/31/2021 Soy Allergy (Obsolete) Hives,Itching,Rash Low 11/23 Sulfa Antibiotics Hives,Itching,Rash Low 11/23/2019 [place] Oil Hives,Itching,Rash Low 11/23/2019 Medications levonorgestrel (MIRENA) 20 MCG/24HR IUD 1 each by Intrauterine route 1 (one) time. Active diphenhydrAMINE (SOMINEX) 25 MG tablet Take 50 mg by mouth. Active methocarbamol (ROBAXIN) 750 MG tabletIndication s:Carpal tunnel syndrome of left wrist Take 1 tablet (750 mg total) by mouth 4 (four) times a day for 10 days. 30 tablet 1 Active ibuprofen (MOTRIN) 800 MG tabletIndication s:Carpal tunnel syndrome of left wrist Take 1 tablet (800 mg total) by mouth every 8 (eight) hours if needed for headaches for up to 30 doses. 30 tablet 1 Active Cholecalciferol (Vitamin D3) 25 MCG (1000 UT) capsuleIndicatio ns:Vitamin D deficiency USE DIRECTED 100 capsule 2 Active amLODIPine (NORVASC) 5 MG tabletIndication s:Essential hypertension TAKE 1 TABLET(5 MG) BY MOUTH 1 TIME EACH DAY 90 tablet 2 Active Active Problems Problem Noted Date Diagnosed Date Essential hypertension 08/19/2021 Overview (09/01/2022): Now controlled without medication. Blood Pressure 120/74 06/23/2022 8:17 AM CDT Eczema 08/19/2021 Carpal tunnel syndrome of left wrist 08/19/2021 Elevated blood pressure affe cting in third trimester, antepartum 05/19/2021 Multinodular thyroid 01/17/2020 Morbid obesity 01/17/2020 BMI 40.0-44.9, adult 01/17/2020 Vitamin D deficiency 12/06/2019 Family history of diabetes mellitus 12/06/2019 Allergic rhinitis due to pollen 12/06/2019 Herpes simplex vulvovaginitis 11/23/2019 GERD (gastroesophageal reflux disease) 9 Overview (12/06/2019): 2007 Immunizations Immunization Administration Dates Next Due Covid-19 (Moderna [place], 12yrs+) (CVX-207) 2020,07/02/2021 Influenza, (Afluria Fluarix Flulaval Fluzone) quad, PF (CVX-150) 08/19/2021,12/06/2019 Td (TdVax), adult, 2 Lf teta nus toxoid, PF, adsorbed (CVX-09) 10/16/2014 Tdap (ADACEL BOOSTRIX) (CVX-115) 03/30/2021 Family History Medical History Relation Name Comments Cancer Father Deni Dugan Prostate cancer Hypertension Mother Rosalva dugan Relation Name Status Comments Father Deni Dugan Mother Rosalva dugan Social History Tobacco Use Types Packs/Day Years Used Date Smoking Tobacco: Never Smokeless Tobacco: Never Tobacco Cessation:Counseling Given: No Alcohol Use Standard Drinks/Week Comments Yes 0 (1 standard drink = 0.6 oz pur e alcohol) Occasionally Intimate Partner Violence Answer Date R ecorded Insults You Not on file 02/16/2021 Threatens You Not on file 02/16/2021 Screams at You Not on file 02/16/2021 Physically Hurt Not on file 02/16/2021 Intimate Partner Violence Score Not on file 02/16/2021 Alcohol Use Answer Date Recorded Alcohol Use Status Yes 08/19/2021 Depression Answer Date Recorded PHQ Total Score Not on file 08/20/2022 Stress Answer Date Recorded Stress in your Life Not on file 08/20/2022 Dealing with Stress Not on file 08/20/2022 Physical Activity Answer Date Recorded How often do you engage in m oderate physical activity for 30 minutes or more? Never 08/19/2021 How often do you engage in v igorous physical activity for 20 minutes or more? Never 08/19/2021 How many hours per day do you spend sitting? 6 t o 8 hours 08/19/2021 Education Answer Date Recorded What is the highest level of school you have completed or the highest degree you have received? 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 Not on file Not on file Last Filed Vital Signs Vital Sign Reading Time Taken Comments Blood Pressure 120/74 06/23/2022 8:00 AM CDT See nitrate operator visit on 06/23/2022 Pulse 80 06/23/2022 8:00 AM CDT Temperature 37 C (98.6 F) 08/19/2021 10:45 AM CDT Respiratory Rate 18 08/19/2021 9:11 AM CDT Oxygen Saturation 97% 08/19/2021 9:1 1 AM CDT Inhaled Oxygen Concentration - - Weight 106 kg (234 lb 8 oz) 08/19/2021 9:11 AM CDT Height 161.3 cm (5' 3.5) 08/19/2021 9: 11 AM CDT Body Mass Index 40.89 08/19/2021 9:11 AM CDT Plan of Treatment Health Maintenance Due Date Last Done Comments HPV only / HPV + Pap 1988 Hepatitis B Immunization (1 of 3 - 19+ 3-dose series) 2007 Dental Cleaning/Exam 01/16/2021 01/17/2020, 09/06/2019 Cervical Cancer Screening Combo 08/03/2022 Pap only testing 08/03/2022 08/03/2019 Covid-19 Immunization ( season) 2025 07/30/2021, 07/02/2021 Influenza Immunization (#1) 07/08/202508/07, 12/06/2019, 12/06/2019 Tetanus Diphtheria and Pertussis Immunization (4 - Td or Tdap) 03/30/2031 03/30/2021, 10/16/2014, 04/16/2011 HPV Immunization Completed 02/05/2013, 02/09/2012, 11/18/2011 HIB Immunization Aged Out No longer e ligible based on patient's age to complete this topic Hepatitis A Immunization Aged Out No longer eligible based on patient's age to complete this topic Pneumococcal Immunization Aged Out No longer eligible based on patient's age to complete this topic Polio Immunization Aged Out No longer eligible based on patient's age to complete this topic Varicella Immunization Aged Out No lo nger eligible based on patient's age to complete this topic Goals Goal Patient Goal Type Associated Problems Recent Progress Patient-Stated? Author I will do 30 min cardio before work 3 times a week General On track( 3:04 PM CDT) Yes Crala Muro RD I will walk 10 min at work 5 times a week General On track( 3:04 PM CDT) Yes Carla Muro RD I will take stairs more often General Yes Carla Muro RD I will increase my intake of fruits and veggies General On track( 3:04 PM CDT) Yes Carla Muro RD I will eat lower fat cheese General Yes Carla Muro RD I will add 30-45 min home workout in the morning and continue my walks (75 to 90 min/day). General On track( 3:04 PM CDT) Yes Carla Muro RD I will continue my exercise routine General On track( 3:04 PM CDT) Yes Carla Muro RD I will add more fruit and veg to meals. Have one at each meal. General On track( 3:04 PM CDT) Yes Carla Muro RD I will limit limit cheese. General On track( 3:04 PM CDT) Yes Carla Muro RD I will add veggies to lunch General On track( 3:04 PM CDT) Yes Carla Muro RD I will decrease my meat intake (sausage, etc). General On track( 3:04 PM CDT) Yes Carla Muro RD I will track what I eat on [employer] General Yes Carla Muro RD Increase fruit to 2 times a day. General Improving(01/2020 4:27 PM CDT) Yes Carla Muro RD Cont exercise General On track( 4:27 PM CDT) Yes Carla Muro RD I will increase my fruit intake. General Yes Carla Muro RD I will increase my calcium intake. General Yes Carla Muro RD I will walk 20-30 minutes and do strength training 5 times a week. General Yes Carla Muro RD Insurance [facility] NO COPAY
--- OUTSIDE RECORDS SUMMARY | 2025-08-26 08:14 | XMS_ITS | Patient Health Record ---
Author Organization [facility] [place] ([address]) Address [address] [place] [address] Care Team Providers Care Vaccine Specialist Name Role Phone Andres Wyman Primary Care Provider Bobbi Souza Unavailable [phone] Allergies Allergen (clinical drug ingredient) Drug/Non Drug Allergy documented on EMR Reaction Allergy Type Onset Date Status Substance with sulfonamide structure and antibacterial mechanism of action (substance) sulfa drugs (uncoded) hives in 2017 Allergy Active Penicillin hives in 2017 with surgery for a boil Drug Allergy Active Results Component Value Reference Range Notes -Immunoglobulin E, Total Reviewed date:01/07/2025 03:00:22 PM Interpretation:Normal Performing Lab:[facility] [address] [id number], Phone - [phone], Director - Jett Notes/Report: or for research. clinical purposes. These should not be regarded as investigational clearance or approval is not necessary. These tests are used for Food and Drug Administration. The FDA has determined that such [facility]. These tests have not been cleared or approved by the [place] were developed and had performance characteristics determined by Test(s) 824031-[id number]-RcG [place] Immunoglobulin E, Total 243 6-495 IU/mL -CBC With Differential/Plate let Reviewed date:01/03/2025 11:30:05 AM Interpretation:Normal Performing Lab:[facility] [address] [id number], Phone - [phone], Director - Bill Notes/Report: WBC 6.9 3.4-10.8 x10E3/uL RBC 4.17 3.77-5.28 x10E6/uL Hemoglobin 13.0 11.1-15.9 g/dL Hematocrit 39.8 34.0-46.6 % MCV 95 79-97 fL MCH 31.2 26.6-33.0 pg MCHC 32.7 31.5-35.7 g/dL RDW 12.3 11.7-15.4 % Platelets 324 150-450 x10E3/uL Neutrophils 66 Not Estab. % Lymphs 25 Not Estab. % Monocytes 7 Not Estab. % Eos 1 Not Estab. % Basos 0 Not Estab. % Neutrophils (Absolute) 4.5 1.4-7.0 x10E3/uL Lymphs (Absolute) 1.7 0.7-3.1 x10E3/uL Monocytes(Absolute) 0.5 0.1-0.9 x10E3/uL Eos (Absolute) 0.1 0.0-0.4 x10E3/uL Baso (Absolute) 0.0 0.0-0.2 x10E3/uL Immature Granulocytes 1 Not Estab. % Immature Grans (Abs) 0.1 0.0-0.1 x10E3/uL -F054 Sweet Potato Reviewed date:01/07/2025 03:00:30 PM Interpretation:Normal Performing Lab:[facility] [id number], Phone - [phone], Director - Jett Notes/Report: or for research. clinical purposes. These should not be regarded as investigational clearance or approval is not necessary. These tests are used for Food and Drug Administration. The FDA has determined that such [facility]. These tests have not been cleared or approved by the [place] were developed and had performance characteristics determined by Test(s) 588124-D867-MrM [place] X614-FiH Sweet Potato <0.10 Class 0 kU/L -IgE Hazelnut w/ Component R eflex Reviewed date:01/07/2025 03:00:06 PM Interpretation:Normal Performing Lab:[facility] [id number], Phone - [phone], Director - [facility] Notes/Report: Test(s) 346241-O817-UvX Green Haq were developed and had performance characteristics determined by [facility]. These tests have not been cleared or approved by the U.S. Food and Drug Administration. The FDA has determined that such clearance or approval is not necessary. These tests are used for clinical purposes. These should not be regarded as investigational or for research. F825-ExG Hazelnut (Filbert) <0.10 Class 0 kU/L -IgE [place] w/ Component Ref maxine Reviewed date:01/07/2025 02:59:36 PM Interpretation:Normal Performing Lab:[facility] [id number], Phone - [phone], Director [facility] Notes/Report: Test(s) 479477-T516-KtA Green Haq were developed and had performance characteristics determined by [facility]. These tests have not been cleared or approved by the U.S. Food and Drug Administration. The FDA has determined that such clearance or approval is not necessary. These tests are used for clinical purposes. These should not be regarded as investigational or for research. V034-AtH [place] <0.10 Class 0 kU/L -IgE Milk w/ Component Refle x Reviewed date:01/07/2025 02:59:20 PM Interpretation:Normal Performing Lab:[address] [id number], Phone - [phone], Director [facility] Notes/Report: Test(s) 032249-U904-FwN Green Haq were developed and had performance characteristics determined by [facility]. These tests have not been cleared or approved by the U.S. Food and Drug Administration. The FDA has determined that such clearance or approval is not necessary. These tests are used for clinical purposes. These should not be regarded as investigational or for research. Class Description Levels of Specific IgE Class Description of Class ----- < 0.10 0 Negative 0.10 - 0.31 0/I Equivocal/Low 0.32 - 0.55 I Low 0.56 - 1.40 II Moderate 1.41 - 3.90 III High 3.91 - 19.00 IV Very High 19.01 - 100.00 V Very High >100.00 Very High V812-WsR Milk <0.10 Class 0 kU/L -F203 Pistachio Nut Reviewed date:01/07/2025 02:59:28 PM Interpretation:Normal Performing Lab:[address] [id number], Phone - [phone], Director - [facility] Notes/Report: Test(s) 121013-Z137-RdR Green Haq were developed and had performance characteristics determined by [facility]. These tests have not been cleared or approved by the [place]. Food and Drug Administration. The FDA has determined that such clearance or approval is not necessary. These tests are used for clinical purposes. These should not be regarded as investigational or for research. O559-LcC Pistachio Nut <0.10 Class 0 kU/L -TSH Rfx on Abnormal to Free T4 Reviewed date:01/03/2025 11:29:37 AM Interpretation:Normal Performing Lab:[address] [id number], Phone - [phone], Director - [facility] Notes/Report: TSH 0.497 0.450-4.500 uIU/mL -F315 Green Haq Reviewed date:01/07/2025 02:59:03 PM Interpretation:Normal Performing Lab:[address] [id number], Phone - [phone], Director - [facility] Notes/Report: Test(s) 800630-J494-UtT Green Haq were developed and had performance characteristics determined by [facility]. These tests have not been cleared or approved by the [place]. Food and Drug Administration. The FDA has determined that such clearance or approval is not necessary. These tests are used for clinical purposes. These should not be regarded as investigational or for research. T924-FdR [place]q <0.10 Class 0 kU/L -F040 Tuna Reviewed date:01/17/2025 09:40:55 AM Interpretation:Normal Performing Lab:[address] [id number], Phone - [phone], Director [facility] Notes/Report: N172-KvO Tuna <0.10 Class 0 kU/L -F010 Sesame Seed Reviewed date:01/07/2025 02:59:53 PM Interpretation:Normal Performing Lab:[address] [id number], Phone - [phone], Director - [facility] Notes/Report: Test(s) 815678-H765-TdZ Green Haq were developed and had performance characteristics determined by [facility]. These tests have not been cleared or approved by the U.S. Food and Drug Administration. The FDA has determined that such clearance or approval is not necessary. These tests are used for clinical purposes. These should not be regarded as investigational or for research. B891-TaQ Sesame Seed <0.10 Class 0 kU/L -F041 Ferguson Reviewed date:01/17/2025 09:40:48 AM Interpretation:Normal Performing Lab:[address] [id number], Phone - [phone], Director - [facility] Notes/Report: J350-PaY [place] <0.10 Class 0 kU/L -F009 Rice Reviewed date:01/17/2025 09:40:40 AM Interpretation:Normal Performing Lab:[address] [id number], Phone - [phone], Director [facility] Notes/Report: D513-AoU Rice <0.10 Class 0 kU/L -F035 Potato, White Reviewed date:01/07/2025 02:58:55 PM Interpretation:Normal Performing Lab:[address] [id number], Phone - [phone], Director - [facility] Notes/Report: Test(s) 770445-L545-GwQ Green Haq were developed and had performance characteristics determined by [facility]. These tests have not been cleared or approved by the [place].S. Food and Drug Administration. The FDA has determined that such clearance or approval is not necessary. These tests are used for clinical purposes. These should not be regarded as investigational or for research. C632-EfP Potato, White <0.10 Class 0 kU/L -F007 Oat Reviewed date:01/07/2025 03:00:39 PM Interpretation:Normal Performing Lab:[facility] [id number], Phone - [phone], Director - [facility] Notes/Report: Test(s) 730169-U171-JqO Green Haq were developed and had performance characteristics determined by [facility]. These tests have not been cleared or approved by the [place].S. Food and Drug Administration. The FDA has determined that such clearance or approval is not necessary. These tests are used for clinical purposes. These should not be regarded as investigational or for research. O213-IaX Oat <0.10 Class 0 kU/L -F020 [place] Reviewed date:01/07/2025 02:59:45 PM Interpretation:Normal Performing Lab:[facility] [id number], Phone - [phone], Director - [facility] Notes/Report: Test(s) 523979-H743-UlM Green Haq were developed and had performance characteristics determined by [facility]. These tests have not been cleared or approved by the [place].S. Food and Drug Administration. The FDA has determined that such clearance or approval is not necessary. These tests are used for clinical purposes. These should not be regarded as investigational or for research. U970-IdX [place] <0.10 Class 0 kU/L -F026 Pork Reviewed date:01/17/2025 09:54:52 AM Interpretation:Normal Performing Lab:[address] [id number], Phone - [phone], Director - [facility] Notes/Report: Test(s) 394412-X415-RqB Green Haq were developed and had performance characteristics determined by [facility]. These tests have not been cleared or approved by the [place].S. Food and Drug Administration. The FDA has determined that such clearance or approval is not necessary. These tests are used for clinical purposes. These should not be regarded as investigational or for research. D428-OqS Pork <0.10 Class 0 kU/L -U381-XiN [place]ckley Seed Reviewed date:01/07/2025 03:00:15 PM Interpretation:Normal Performing Lab:[facility] [place], [address] [place] [address], [place], [place] [id number], Phone - [phone], Director - Jett Notes/Report: Test(s) 811092-X955-MvZ Green Haq were developed and had performance characteristics determined by [facility]. These tests have not been cleared or approved by the [place].S. Food and Drug Administration. The FDA has determined that such clearance or approval is not necessary. These tests are used for clinical purposes. These should not be regarded as investigational or for research. Q999-PuI [place] Seed <0.10 Class 0 kU/L -Sedimentation Rate-Westergr en Reviewed date:01/03/2025 11:30:20 AM Interpretation:Normal Performing Lab:[facility] [address] [id number], Phone - [phone], Director - Bill Notes/Report: Sedimentation Rate-Westergren 17 0-32 mm/hr -CMP (14) Reviewed date:01/03/2025 11:29:49 AM Interpretation:Normal Performing Lab:[facility] [address] [id number], Phone - [phone], Director - Bill Notes/Report: Glucose 80 70-99 mg/dL BUN 12 6-20 mg/dL Creatinine 0.72 0.57-1.00 mg/dL eGFR 111 >59 mL/min/1.73 BUN/Creatinine Ratio 17 9-23 Sodium 139 134-144 mmol/L Potassium 4.7 3.5-5.2 mmol/L Chloride 101 96-106 mmol/L Carbon Dioxide, Total 25 20-29 mmol/L Calcium 9.4 8.7-10.2 mg/dL Protein, Total 7.2 6.0-8.5 g/dL Albumin 4.3 3.9-4.9 g/dL Globulin, Total 2.9 1.5-4.5 g/dL Bilirubin, Total 0.5 0.0-1.2 mg/dL Alkaline Phosphatase 76 44-121 IU/L AST (SGOT) 9 0-40 IU/L ALT (SGPT) 13 0-32 IU/L Reason For Referral No Information Medications Medication SIG (Take, Route, Fr equency, Duration) Notes Start Date End Date Status Saxenda 18 MG/3ML INJECT 3MG ONCE A DA Y DIRECTED. Subcutaneous; Duration: 30 Days Active Lisinopril 20 MG TAKE 1 TABLET BY ZENY TH EVERY DAY DIRECTED (DOSE INCREASE) Oral; Duration: 90 Days Active Social History Tobacco Use: Social History Observation Description Date Details (start date - stop date) Never Smoker NA - NA Sex Assigned At : Social History Observation Description Sex Assigned At Female Tobacco Control (Standard) Question Answer Notes Tobacco use: Nonsmoker Problems Problem Type SNOMED Code ICD Code Onset Dates Problem Status W/U Status Risk Notes Problem Chronic allergic conjunctivitis (55595513) Other chronic allergic conjunctivitis (H10.45) Active confirmed Problem Allergic rhinitis caused by pollen (disorder) (97470071) Allergic rhinitis due to pollen (J30.1) Active confirmed Problem Allergic rhinitis (95177671) Other allergic rhinitis (J30.89) Active confirmed Problem Allergic rhinitis caused by animal hair and dander (405979428254698) Allergic rhinitis due to animal (cat) (dog) hair and dander (J30.81) Active confirmed Vital Signs Blood pressure diastolic 85 mm Hg 01/02/2025 Oximetry 99 % 01/02/2025 Height 63 in 01/02/2025 Blood pressure systolic 130 mm Hg 01/02/2025 Weight 240.8 lbs 01/02/2025 BMI 42.65 kg/m2 01/02/2025 Encounters Encounter Location Date Provider Diagnosis [facility] [address] [address] 01/02/2025 Bobbi [place] Allergic rhinitis du e to pollen J30.1 ; Idiopathic urticaria L50.1 ; Dermatitis due to ingested food L27.2 ; Allergic rhinitis due to animal (cat) (dog) hair and dander J30.81 ; Other allergic rhinitis J30.89 and Other chronic allergic conjunctivitis H10.45 Assessments Encounter Date Diagnosis (ICD Code) Assessment Notes Treatment Notes Treatment Clinical Notes Section Notes 01/02/2025 Allergic rhinitis due to pollen (ICD-10 - J30.1) Given the history and symptoms, skin testing was performed to common aeroallergens to determine atopic status. Didier clearly suffers from atopic disease based upon our skin testing and clinical history. Accordingly, we have introduced a new, aggressive medication regimen, discussed nasal washes and allergy-specific avoidance measures. 01/02/2025 Idiopathic urticaria (ICD-10 - L50.1) Considerations for hives include autoimmune, viral, stress, or idiopathic. Plan to order labwork for further evaluation. Start treatment with Zyrtec 10 mg BID, Famotidine 20 mg BID. Food may be playing a role and continue current avoidance until we get lab results. Follow-up in 1 month. 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 ImmunoCAPs ordered for further evaluation. For now, continue avoidance of sesame seeds and tree nuts. 01/02/2025 Allergic rhinitis due to animal (cat) (dog) hair and dander (ICD-10 - J30.81) Follow allergen avoidance, meds and consider SCIT as an adjunctive treatment to current regimen 01/02/2025 Other allergic rhinitis (ICD-10 - J30.89) 01/02/2025 Other chronic allergic conjunctivitis (ICD-10 - H10.45) Given ocular signs and symptoms I encouraged allergy avoidance measures and meds as above. If symptoms persist, consider adding additional medications including intraocular antihistamine/mast cell stabilizer, PRN Plan Of Treatment No Information Insurance Providers Payer Name Payer Address Payer Phone Subscriber Number Group Number Insured Name Patient Relationship to Insured Coverage Start Date Coverage End Date [employer] [address] [address] [facility] [place] [address] [id number] Didier Coker Self - patient is the insured 4 Medical (General) History Medical History History ICD Code high blood pressure Surgical History Surgery Date(Month/Year) c section 05/2021 boil removal 2016 Hospitalization History Reason Date(Month/Year) See Above
--- OUTSIDE RECORDS SUMMARY | 2025-08-26 08:15 | XMS_ITS | Data Portability ---
Author Organization [place] - [facility], Main Office Address [address] [place] [address] Care Team Providers Care Stretcher And Drier Name Role Phone ANDRES WYMAN Primary Care Provider Assessment Encounter Date Assessment Date Assessment LastModified by Organization Details LastModified Time 11/27/2024 11/27/2024 33 yo F with - WT LOSS PROGRAM - SUBCLINICAL HYPERTHYROIDIS M, new - HTN - JEWELS - VIT D DEFICIENCY - OBESITY III - H/O GESTATIONAL HTN US neck: 07/06/24. Annual labs: 03/07/24. X-ray C & L spine: 01/13/24. Sleep study: 06/22/23. Sleep study: 03/23/23. Annual labs: 01/31/23. Wt: 270(02/21/23) - 256(03/21/23) - 257(04/21/23) - 251(05/30/23) - 247(06/30/23) - 240(08/17/23) [Pt stopped] Wt: 228(07/23/24) - 231(11/27/24) D/w pt in detail about her findings, recent labs & imagines and further plan of care. Will refer pt to top lift compressor. Meds as directed. Diet and exercise explained in detail. Educated about different options for her. BP diary education given and call us if any concerns. F/u with Cardiac Nurse Practitioner as per schedule. F/u with Pulmo as per schedule. Cont f/u with Gyne as per schedule. Cont f/u with Ophtho as per schedule. Cont f/u with Derm as per schedule. HM: WWE - 03/30/24, normal as per pt. Cont f/u with Gyne/SPRIGGER as per schedule. Mammo - Never. Aunt had breast CA. Cont f/u with Gyne/SPRIGGER. Flu - 11/27/24. Tdap - 01/31/23. Gardasil - Pt had it in the past. F/u in 2 months. TSH, FT4, FT3 before next visit. Annual labs in 03/31. [email or web address] Not available 11/27/2024 11:15:21 03/14/2025 03/14/2025 34 yo F with - SUBCLINICAL HYPERTHYROIDIS M, chronic - HTN - JEWELS - VIT D DEFICIENCY - OBESITY III - H/O GESTATIONAL HTN US neck: 07/06/24. Annual labs: 03/07/24. X-ray C & L spine: 01/13/24. Sleep study: 06/22/23. Sleep study: 03/23/23. Annual labs: 01/31/23. Wt: 270(02/21/23) - 256(03/21/23) - 257(04/21/23) - 251(05/30/23) - 247(06/30/23) - 240(08/17/23) [Pt stopped] Wt: 228(07/23/24) - 231(11/27/24) - 244(03/14/25) [stop] D/w pt in detail about her findings, recent labs & imagines and further plan of care. All meds verified with pt. Meds as directed. Diet and exercise explained in detail. Educated about different options for her. BP diary education given and call us if any concerns. F/u with Pulmo as per schedule. Cont f/u with Cardiac Nurse Practitioner as per schedule. Cont f/u with Gyne as per schedule. Cont f/u with Ophtho as per schedule. Cont f/u with Derm as per schedule. HM: WWE - 03/30/24, normal as per pt. Cont f/u with Gyne/SPRIGGER as per schedule. Mammo - Never. Aunt had breast CA. Cont f/u with Gyne/SPRIGGER. Flu - 11/27/24. Tdap - 01/31/23. Gardasil - Pt had it in the past. F/u in 1-2 months. Annual labs in 03/31. [email or web address] Not available 03/14/2025 11:44:31 06/06/2025 06/06/2025 34 yo F with - SUBCLINICAL HYPERTHYROIDIS M, chronic - HTN - JEWELS - VIT D DEFICIENCY - OBESITY III - H/O GESTATIONAL HTN US neck: 07/06/24. Annual labs: 03/07/24. X-ray C & L spine: 01/13/24. Sleep study: 06/22/23. Sleep study: 03/23/23. Annual labs: 01/31/23. Wt: 270(02/21/23) - 256(03/21/23) - 257(04/21/23) - 251(05/30/23) - 247(06/30/23) - 240(08/17/23) [Pt stopped] Wt: 228(07/23/24) - 231(11/27/24) - 244(03/14/25) [stop] D/w pt in detail about her findings, recent labs & imagines and further plan of care. All meds verified with pt. Meds as directed. Diet and exercise explained in detail. Educated about different options for her. BP diary education given and call us if any concerns. F/u with Pulmo as per schedule. Cont f/u with Cardiac Nurse Practitioner as per schedule. Cont f/u with Gyne as per schedule. Cont f/u with Ophtho as per schedule. Cont f/u with Derm as per schedule. HM: WWE - 03/01, normal as per pt. Cont f/u with Gyne/SPRIGGER as per schedule. Mammo - Never. Aunt had breast CA. Cont f/u with Gyne/SPRIGGER. Flu - 11/27/24. Tdap - 01/31/23. Gardasil - Pt had it in the past. F/u in 1-2 months. Annual labs in 03/31. [email or web address] Not available 06/06/2025 10:21:05 06/27/2025 06/27/2025 34 yo F with - WELL ADULT VISIT - SUBCLINICAL HYPERTHYROIDIS M, chronic - HTN - JEWELS - VIT D DEFICIENCY - OBESITY III - H/O GESTATIONAL HTN US neck: 07/06/24. Annual labs: 03/07/24. X-ray C & L spine: 01/13/24. Sleep study: 06/22/23. Sleep study: 03/23/23. Annual labs: 01/31/23. Wt: 270(02/21/23) - 256(03/21/23) - 257(04/21/23) - 251(05/30/23) - 247(06/30/23) - 240(08/17/23) [Pt stopped] Wt: 228(07/23/24) - 231(11/27/24) - 244(03/14/25) [stop] D/w pt in detail about her findings, recent labs & imagines and further plan of care. Will do routine labs. All meds verified with pt. Meds as directed. Diet and exercise explained in detail. Educated about different options for her. BP diary education given and call us if any concerns. F/u with Pulmo as per schedule. Cont f/u with Cardiac Nurse Practitioner as per schedule. Cont f/u with Gyne as per schedule. Cont f/u with Ophtho as per schedule. Cont f/u with Derm as per schedule. HM: WWE - 03/01, normal as per pt. Cont f/u with Gyne/SPRIGGER as per schedule. Mammo - Never. Aunt had breast CA. Cont f/u with Gyne/SPRIGGER. Flu - 11/27/24. Tdap - 01/31/23. Gardasil - Pt had it in the past. F/u in 3-4 weeks. Annual labs in 07/02. [email or web address] Not available 06/27/2025 10:33:51 Plan of Treatment Reminders Order Date Submit Date Provider Last Modified By Organization Details Last Modified Time Details Appointments None recorded. Lab T4, free, serum 2024 025 [facility] (Lab), [address] [place], [address], 5 20:22:36 T3, free, serum or plasma 2024 025 [facility] (Lab), [address] [place], [address], 5 20:22:38 CBC w/ auto diff 2024 025 [email or web address] [facility] (Lab), [address] [place], [address], 5 16:16:44 CMP, serum or plasma 2024 025 [facility] (Lab), [address] [place], [address], 5 19:43:43 lipid panel, serum 2024 025 [facility] (Lab), [address] [place], [address], 5 19:43:47 TSH, serum, reflex free T4 [address] (Lab), [address] [place], [address], 5 14:35:36 urinalysis complete, reflex culture [address] (Lab), [address] [place], [address], 5 16:17:24 [email or web address] obin, total, blood 2024 025 [facility] (Lab), [address] [place], [address], 5 22:31:33 vitamin D, 25-hydroxy, total, serum [address] (Lab), [address] [place], [address], 5 09:35:22 Referral top lift compressor referral - Chronic allergies. Please call patient to schedule an appointment . Thank you. 2024 025 [email or web address] Dwight Dawn MD, [address], [address] [place], [address], 5 08:54:38 Procedures None recorded. Surgeries None recorded. Imaging None recorded. Medication Orders lisinopril 20 mg tablet 2024 025 [facility][id number], [address] [facility], [place], [place], [id number], 5 10:54:44 fluticasone propionate 50 mcg/actuati on nasal spray,suspe nsion 2024 025 [facility] #[id number], [address] [place], [place], [id number], 5 10:54:46 ergocalcife rol (vitamin D2) 1,250 mcg (50,000 unit) capsule 2024 025 [facility] #[id number], [address] [place], [place], [id number], 5 10:54:42 Wegovy 1 mg/0.5 mL subcutaneou s pen injector 2024 025 [facility], [address] [facility], [place], [address], 5 10:16:58 lisinopril 20 mg tablet 2024 025 [facility], [address], [place], [address], 5 10:16:59 ergocalcife rol (vitamin D2) 1,250 mcg (50,000 unit) capsule 2024 025 [facility], [address] [facility], [place], [address], 5 10:16:59 fluticasone propionate 50 mcg/actuati on nasal spray,suspe nsion 2024 025 [facility] [address], [address] [facility], [place], [address], 5 10:16:57 Saxenda 3 mg/0.5 mL (18 mg/3 mL) subcutaneou s pen injector 2024 025 [email or web address] 4 [facility], [address] [facility], [place], [address], 5 10:11:54 lisinopril 20 mg tablet 2024 025 [facility], [address] [place] [address], [place], [address], 5 11:30:03 ergocalcife rol (vitamin D2) 1,250 mcg (50,000 unit) capsule 2024 025 [facility], [address] [place], [address], 5 11:45:06 fluticasone propionate 50 mcg/actuati on nasal spray,suspe nsion 2024 025 [facility], [address] [facility], [place], [address], 5 11:29:56 Saxenda 3 mg/0.5 mL (18 mg/3 mL) subcutaneou s pen injector 2024 025 [email or web address] 4 [facility] [address], [address] [place], [address], 5 10:11:54 lisinopril 20 mg tablet 2024 025 [facility] [address], [address], [place], [address], 10:54:39 fluticasone propionate 50 mcg/actuati on nasal spray,suspe nsion 2024 025 [facility] [address] [facility], [address], [place], [address], 10:54:40 levocetiriz ine 5 mg tablet 2024 025 [email or web address] [facility] [facility], [address], [place], [address], 11:28:51 Patient TargetsNo targets recorded. Patient Instructions Encounter Date Encounter Id Patient Instructions Last Modified By Organization Details Last Modified Time 11/27/2024 [id number] When You Want to Lose Weight: Care Instructions [email or web address] Not available 11/27/2024 10:54:34 Starting a Weight-Loss Plan: Care Instructions [email or web address] Not available 11/27/2024 10:54:35 03/14/2025 [id number] When You Want to Lose Weight: Care Instructions [email or web address] Not available 03/14/2025 11:29:51 Starting a Weight-Loss Plan: Care Instructions Not available 03/14/2025 11:29:51 06/06/2025 [id number] When You Want to Lose Weight: Care Instructions Not available 06/06/2025 10:16:53 Starting a Weight-Loss Plan: Care Instructions [email or web address] Not available 06/06/2025 10:16:53 06/27/2025 [id number] When You Want to Lose Weight: Care Instructions [email or web address] Not available 06/27/2025 10:45:02 Starting a Weight-Loss Plan: Care Instructions Not available 06/27/2025 10:45:02 Reason for Referral Cardiac Nurse Practitioner Referral for Seaso nal allergic rhinitis Chronic allergies. Please call patient to schedule an appointment. Thank you. Referring Physician: Andres Wyman, Family Medicine, Encounter Date: 11/27/2024 Results Created Date Observation Date Name Description Value Unit Range Abnormal Flag Note LastModifiedBy Organization Detail LastModifiedTime 11/30/1911/30/2024 TSH W/REF RYAN FT4 TSH with reflex free T4 0.161 uIU/m L 0.465- 4.680 low Not Available [facility] (Lab) [address] [place], [address], 11/30/2024 21:26:28 11/30/19 25 11/30/2024 T4 FREE free T4 1.10 NG/dL 0.78-2 .19 Not Available [facility] (Lab) [address] [place], [address], 11/30/2024 23:01:40 06/27/20 25 06/27/2025 CBC/C OMPLE TE BLD COUNT W/DIF F white blood cells 5.0 x10'3 /uL 4.2-10 .8 Not Available [facility] (Lab) [address] [place], [address], 06/27/2025 19:26:11 06/27/20 25 06/27/2025 CBC/C OMPLE TE BLD COUNT W/DIF F red blood cells 4.36 x10'6 /uL 4.10-5 .80 Not Available [facility] (Lab) [address] [place], [address], 06/27/2025 19:26:11 06/27/20 25 06/27/2025 CBC/C OMPLE TE BLD COUNT W/DIF F hemoglobin 13.9 g/dL 13.2-1 7.0 Not Available [facility] (Lab) [address] [place], [address], 06/27/2025 19:26:11 06/27/20 25 06/27/2025 CBC/C OMPLE TE BLD COUNT W/DIF F hematocrit 40.6 % 39.3-5 0.0 Not Available [facility] (Lab) [address] [place], [address], 06/27/2025 19:26:11 06/27/20 25 06/27/2025 CBC/C OMPLE TE BLD COUNT W/DIF F mean red cell volume 93.1 fL 80.0-9 7.0 Not Available [facility] (Lab) [address] [place], [address], 06/27/2025 19:26:11 06/27/20 25 06/27/2025 CBC/C OMPLE TE BLD COUNT W/DIF F mean red cell hemoglobin 31.9 pg 27.0-3 3.0 Not Available [facility] (Lab) [address] [place], [address], 06/27/2025 19:26:11 06/27/20 25 06/27/2025 CBC/C OMPLE TE BLD COUNT W/DIF F mean RBC HGB concentratio n 34.2 g/dL 31.0-3 6.0 Not Available [facility] (Lab) [address] [place], [address], 06/27/2025 19:26:11 06/27/20 25 06/27/2025 CBC/C OMPLE TE BLD COUNT W/DIF F red cell distribution width 12.7 % 11.8-1 5.5 Not Available [facility] (Lab) [address] [place], [address], 06/27/2025 19:26:11 06/27/20 25 06/27/2025 CBC/C OMPLE TE BLD COUNT W/DIF F platelets 281 x10'3 /uL 150-40 0 Not Available [facility] (Lab) [address] [place], [address], 06/27/2025 19:26:11 06/27/20 25 06/27/2025 CBC/C OMPLE TE BLD COUNT W/DIF F mean platelet volume 10.7 fL 9.0-12 .4 Not Available [facility] (Lab) [address] [place], [address], 06/27/2025 19:26:11 06/27/20 25 06/27/2025 CBC/C OMPLE TE BLD COUNT W/DIF F neutrophils 47.8 % 39.0-7 2.0 Not Available [facility] (Lab) [address] [place], [address], 06/27/2025 19:26:11 06/27/20 25 06/27/2025 CBC/C OMPLE TE BLD COUNT W/DIF F lymphocytes 42.4 % 16.0-4 7.0 Not Available [facility] (Lab) [address] [place], [address], 06/27/2025 19:26:11 06/27/20 25 06/27/2025 CBC/C OMPLE TE BLD COUNT W/DIF F monocytes 8.0 % 5.0-12 .0 Not Available [facility] (Lab) [address] [place], [address], 06/27/2025 19:26:11 06/27/20 25 06/27/2025 CBC/C OMPLE TE BLD COUNT W/DIF F eosinophils 1.0 % 1.0-7. 0 Not Available [facility] (Lab) [address] [place], [address], 06/27/2025 19:26:11 06/27/20 25 06/27/2025 CBC/C OMPLE TE BLD COUNT W/DIF F basophils 0.4 % 0.0-2. 0 Not Available [facility] (Lab) [address] [place], [address], 06/27/2025 19:26:11 06/27/20 25 06/27/2025 CBC/C OMPLE TE BLD COUNT W/DIF F immature granulocytes 0.4 % 0.00-0 .50 Not Available [facility] (Lab) [address] [place], [address], 06/27/2025 19:26:11 06/27/20 25 06/27/2025 CBC/C OMPLE TE BLD COUNT W/DIF F neutrophils, absolute count 2.38 x10'3 /uL 1.5-8. 0 Not Available [facility] (Lab) [address] [place], [address], 06/27/2025 19:26:11 06/27/20 25 06/27/2025 CBC/C OMPLE TE BLD COUNT W/DIF F lymphocytes, absolute count 2.11 x10'3 /uL 1.07-3 .43 Not Available [facility] (Lab) [address] [place], [address], 06/27/2025 19:26:11 06/27/20 25 06/27/2025 CBC/C OMPLE TE BLD COUNT W/DIF F monocytes, absolute count 0.40 x10'3 /uL 0.29-0 .99 Not Available [facility] (Lab) [address] [place], [address], 06/27/2025 19:26:11 06/27/20 25 06/27/2025 CBC/C OMPLE TE BLD COUNT W/DIF F eosinophils, absolute count 0.05 x10'3 /uL 0.02-0 .53 Not Available [facility] (Lab) [address] [place], [address], 06/27/2025 19:26:11 06/27/20 25 06/27/2025 CBC/C OMPLE TE BLD COUNT W/DIF F basophils, absolute count 0.02 x10'3 /uL 0.01-0 .08 Not Available [facility] (Lab) [address] [place], [address], 06/27/2025 19:26:11 06/27/20 25 06/27/2025 CBC/C OMPLE TE BLD COUNT W/DIF F immature granulocytes ,absolute 0.02 x10'3 /uL 0.00-0 .05 Not Available [facility] (Lab) [address] [place], [address], 06/27/2025 19:26:11 06/27/20 25 06/27/2025 CBC/C OMPLE TE BLD COUNT W/DIF F nucleated red blood cells 0.0 % -0 Not Available [facility] (Lab) [address] [place], [address], 06/27/2025 19:26:11 06/27/20 25 06/27/2025 CBC/C OMPLE TE BLD COUNT W/DIF F NRBC# 0.00 x10'3 /uL Not Available [facility] (Lab) [address] [place], [address], 06/27/2025 19:26:11 06/27/20 25 06/27/2025 COMPR EHENS PONCHO METAB OLIC PANEL sodium 138 mmol/ L 137-14 5 Not Available [facility] (Lab) [address] [place], [address], 06/27/2025 19:43:42 06/27/20 25 06/27/2025 COMPR EHENS PONCHO METAB OLIC PANEL potassium 4.5 mmol/ L 3.5-5. 1 Not Available [facility] (Lab) [address] [place], [address], 06/27/2025 19:43:42 06/27/20 25 06/27/2025 COMPR EHENS PONCHO METAB OLIC PANEL chloride 107 mmol/ L 98-107 Not Available [facility] (Lab) [address] [place], [address], 06/27/2025 19:43:42 06/27/20 25 06/27/2025 COMPR EHENS PONCHO METAB OLIC PANEL carbon dioxide 25 mmol/ L 22-30 Not Available [facility] (Lab) [address] [place], [address], 06/27/2025 19:43:42 06/27/20 25 06/27/2025 COMPR EHENS PONCHO METAB OLIC PANEL anion gap 10.5 mmol/ L 14-22 low Not Available [facility] (Lab) [address] [place], [address], 06/27/2025 19:43:42 06/27/20 25 06/27/2025 COMPR EHENS PONCHO METAB OLIC PANEL glucose 91 mg/dL 70-99 Not Available [facility] (Lab) [address] [place], [address], 06/27/2025 19:43:42 06/27/20 25 06/27/2025 COMPR EHENS PONCHO METAB OLIC PANEL BUN 14 mg/dL 8-19 Not Available [facility] (Lab) [address] [place], [address], 06/27/2025 19:43:42 06/27/20 25 06/27/2025 COMPR EHENS PONCHO METAB OLIC PANEL creatinine 0.69 mg/dL 0.66-1 .25 Not Available [facility] (Lab) [address] [place], [address], 06/27/2025 19:43:42 06/27/20 25 06/27/2025 COMPR EHENS PONCHO METAB OLIC PANEL GFR >60 Refer ence Range : [place] ge GFR Healt hy Adult : >60 mL/mi n/1.7 3 m2 Chron ic Kidne y Disea se: 15-60 mL/mi n/1.7 3 m2 Kidne y Failu re: <15/m L/min /1.73 m2 www.n iddk. nih.g ov The MDRD study equat ion has not been valid ated in child vonnie <18 years of age; pregn ant women ; the elder ly >85 years of age; or in some racia l or ethni c subgr oups, such as Hispa nics. Outsi de the valid ated dea eters , estim ated GFR is less accur ate, requi ring clini tru judgm ent on a case- by-ca se basis . Clini tru inter preta tion for other races and ages must be made by the clini mariam. The MDRD study equat ion has not been valid ated for the evalu ation of serum creat inine relat ed to nutri lise l statu s or medic ation usage . For perso ns <18 years of age, a pedia tric GFR calcu lator is avail able on the [facility] websi te: https ://jermaine w.min elmore.o robert/pr ofess ional s/kdo qi/gf r_cal culat or Not Available [facility] (Lab) [address] [place], [address], 06/27/2025 19:43:42 06/27/20 25 06/27/2025 COMPR EHENS PONCHO METAB OLIC PANEL alkaline phosphatase 61 U/L 38-126 Not Available [facility] (Lab) [address] [place], [address], 06/27/2025 19:43:42 06/27/20 25 06/27/2025 COMPR EHENS PONCHO METAB OLIC PANEL alanine aminotransfe rase 13 U/L 0-35 Not Available [facility] (Lab) [address] [place], [address], 06/27/2025 19:43:42 06/27/20 25 06/27/2025 COMPR EHENS PONCHO METAB OLIC PANEL aspartate aminotransfe rase 16 U/L 15-37 Not Available [facility] (Lab) [address] [place], [address], 06/27/2025 19:43:42 06/27/20 25 06/27/2025 COMPR EHENS PONCHO METAB OLIC PANEL bilirubin, total 0.90 mg/dL 0.20-1 .30 Not Available [facility] (Lab) [address] [place], [address], 06/27/2025 19:43:42 06/27/20 25 06/27/2025 COMPR EHENS PONCHO METAB OLIC PANEL calcium 9.5 mg/dL 8.4-10 .2 Not Available [facility] (Lab) [address] [place], [address], 06/27/2025 19:43:42 06/27/20 25 06/27/2025 COMPR EHENS PONCHO METAB OLIC PANEL total protein 7.5 g/dL 6.3-8. 2 Not Available [facility] (Lab) [address] [place], [address], 06/27/2025 19:43:42 06/27/20 25 06/27/2025 COMPR EHENS PONCHO METAB OLIC PANEL albumin 4.5 g/dL 3.4-5. 0 Not Available [facility] (Lab) [address] [place], [address], 06/27/2025 19:43:42 06/27/20 25 06/27/2025 COMPR EHENS PONCHO METAB OLIC PANEL globulin 3.0 g/dL 2.6-4. 2 Not Available [facility] (Lab) [address] [place], [address], 06/27/2025 19:43:42 06/27/20 25 06/27/2025 COMPR EHENS PONCHO METAB OLIC PANEL A/G ratio 1.5 ratio 1.0-2. 0 Not Available [facility] (Lab) [address] [place], [address], 06/27/2025 19:43:42 06/27/20 25 06/27/2025 LIPID PANEL cholesterol 210 mg/dL 140-19 9 high NIH CHRISTIAN NSUS RECOM MENDA TION FOR DAVE STERO L: ADULT CHILD LOW RISK: <200 <170 BORDE RLINE : <200- 239 ----- HIGH RISK: >240 >200 Not Available [facility] (Lab) [address] [place], [address], 06/27/2025 19:43:47 06/27/2006/27/2025 LIPID PANEL triglyceride s 56 mg/dL 0-150 NIH CHRISTIAN NSUS REPOR T RECOM MENDA TION FOR TRIGL YCERI MAXX: ADULT CHILD LOW RISK: <150 ----- BODER LINE: 150-1 99 ----- HIGH RISK: >200 ----- Not Available [facility] (Lab) [address] [place], [address], 06/27/2025 19:43:47 06/27/2006/27/2025 LIPID PANEL HDL cholesterol 53 mg/dL 40- Not Available [facility] (Lab) [address] [place], [address], 06/27/2025 19:43:47 06/27/2006/27/2025 LIPID PANEL LDL cholesterol, calculated 146 mg/dL 0-130 high NIH CHRISTIAN NSUS REPOR T RECOM MENDA TIONS FOR LDL: ADULT CHILD LOW RISK <130 <110 (OPTI MAL LDL) <100 ----- BORDE RLINE : 130-1 59 ----- HIGH RISK: >160 >130 A TRIGL YCERI DE RESUL T >400 INVAL IDATE S THE CALCU LATIO N FOR LDL FRACT IONAT ION - THE LDL RESUL T WILL NOT BE REPOR PAIGE. Not Available [facility] (Lab) [address] [place], [address], 06/27/2025 19:43:47 06/27/2006/27/2025 URINA LYSIS COMPL ETE/I RIS W/RFX color YELLOW Not Available [facility] (Lab) [address] [place], [address], 06/27/2025 19:46:25 06/27/2006/27/2025 URINA LYSIS COMPL ETE/I RIS W/RFX appear EXTRA TURBID abnormal Not Available [facility] (Lab) [address] [place], [address], 06/27/2025 19:46:25 06/27/20 25 06/27/2025 URINA LYSIS COMPL ETE/I RIS W/RFX specific gravity 1.029 1.001- 1.030 Not Available [facility] (Lab) [address] [place], [address], 06/27/2025 19:46:25 06/27/20 25 06/27/2025 URINA LYSIS COMPL ETE/I RIS W/RFX pH 6.0 pH_un its 5.0-9. 0 Not Available [facility] (Lab) [address] [place], [address], 06/27/2025 19:46:25 06/27/20 25 06/27/2025 URINA LYSIS COMPL ETE/I RIS W/RFX leukocytes NEGATI VE bill/u L negati ve- Not Available [facility] (Lab) [address] [place], [address], 06/27/2025 19:46:25 06/27/20 25 06/27/2025 URINA LYSIS COMPL ETE/I RIS W/RFX nitrite NEGATI VE negati ve- Not Available [facility] (Lab) [address] [place], [address], 06/27/2025 19:46:25 06/27/20 25 06/27/2025 URINA LYSIS COMPL ETE/I RIS W/RFX protein 10 mg/dL negati ve- abnormal Not Available [facility] (Lab) [address] [place], [address], 06/27/2025 19:46:25 06/27/20 25 06/27/2025 URINA LYSIS COMPL ETE/I RIS W/RFX glucose NORMAL mg/dL normal - Not Available [facility] (Lab) [address] [place], [address], 06/27/2025 19:46:25 06/27/20 25 06/27/2025 URINA LYSIS COMPL ETE/I RIS W/RFX ketones NEGATI VE mg/dL negati ve- Not Available [facility] (Lab) [address] [place], [address], 06/27/2025 19:46:25 06/27/20 25 06/27/2025 URINA LYSIS COMPL ETE/I RIS W/RFX urobilinogen NORMAL mg/dL normal - Not Available [facility] (Lab) [address] [place], [address], 06/27/2025 19:46:25 06/27/20 25 06/27/2025 URINA LYSIS COMPL ETE/I RIS W/RFX bilirubin NEGATI VE mg/dL negati ve- Not Available [facility] (Lab) [address] [place], [address], 06/27/2025 19:46:25 06/27/20 25 06/27/2025 URINA LYSIS COMPL ETE/I RIS W/RFX blood 0.2 mg/dL negati ve- abnormal Not Available [facility] (Lab) [address] [place], [address], 06/27/2025 19:46:25 06/27/2006/27/2025 URINA LYSIS COMPL ETE/I RIS W/RFX white blood cells 0-8 /i??h pfi?? 0-8 Not Available [facility] (Lab) [address] [place], [address], 06/27/2025 19:46:25 06/27/20 25 06/27/2025 URINA LYSIS COMPL ETE/I RIS W/RFX red blood cells 11-20 /i??h pfi?? 0-4 abnormal Not Available [facility] (Lab) [address] [place], [address], 06/27/2025 19:46:25 06/27/20 25 06/27/2025 URINA LYSIS COMPL ETE/I RIS W/RFX bacteria MANY none seen- abnormal Not Available [facility] (Lab) [address] [place], [address], 06/27/2025 19:46:25 06/27/20 25 06/27/2025 URINA LYSIS COMPL ETE/I RIS W/RFX mucous FEW /i??l pfi?? none seen- abnormal Not Available [facility] (Lab) [address] [place], [address], 06/27/2025 19:46:25 06/27/20 25 06/27/2025 URINA LYSIS COMPL ETE/I RIS W/RFX squamous epithelial PACKED FIELD /i??l pfi?? abnormal Not Available [facility] (Lab) [address] [place], [address], 06/27/2025 19:46:25 06/27/20 25 06/27/2025 VITAM IN D 25-HY DROXY [id number] 32.3 NG/mL 30-100 Vitam in D Statu s: Defic ient: <20 ng/mL Insuf ficie nt: 20-29 ng/mL Suffi cient : 30-10 0 ng/mL Not Available [facility] (Lab) [address] [place], [address], 06/27/2025 19:57:04 06/27/2006/27/2025 T4 FREE free T4 0.91 NG/dL 0.78-2 .19 Not Available [facility] (Lab) [address] [place], [address], 06/27/2025 20:22:35 06/27/20 25 06/27/2025 T3 FREE free T3 3.7 pg/mL 2.77-5 .27 Not Available [facility] (Lab) [address] [place], [address], 06/27/2025 20:23:17 06/27/20 25 06/27/2025 TSH W/REF RYAN FT4 TSH with reflex free T4 0.319 uIU/m L 0.465- 4.680 low Not Available [facility] (Lab) [address] [place], [address], 06/27/2025 20:35:26 06/27/20 25 06/27/2025 T4 FREE free T4 0.91 NG/dL 0.78-2 .19 Not Available [facility] (Lab) [address] [place], [address], 06/27/2025 20:39:14 06/27/20 25 06/27/2025 HEMOG LOBIN A1C HA1C 5.3 % 4.0-6. 0 Diabe shavonne Scree dhaval Crite leonid: <5.7% Consi stent with absen ce of diabe shavonne 5.7-6 .4% Consi stent with incre ased risk for diabe shavonne (pred iabet es) >OR=6 .5% Consi stent with diabe shavonne REFER ENCE: Diabe shavonne Care 2016, 39(Norris ppl.1 ):s13 -s22 Not Available [facility] (Lab) [address] [place], [address], 06/27/2025 22:31:33 Result Notes None recorded. Problems Name Problem SNOMED Code Status Onset Date Resolution Date Notes Provider Name and Address Organization Details Recorded Time Obesity 597639634 Active 2022 Andres Wyman MD [address], [place] [address], [place], [address] , [facility] [employer] 3 14:15:51 Vitamin D deficiency 04821357 Active 2022 Andres Wyman MD [address], [place], [address], [employer] 3 14:16:46 Elevated blood-press ure reading without diagnosis of hypertensio n 004739603 Active 2022 Andres Wyman MD [address], [address], [place], [address], [employer] 3 14:19:18 Sleep apnea 40273261 Active 2022 Andres Wyman MD [address], [address], [place], [address], [employer] 3 14:20:32 Herpes simplex 68857551 Active 2022 Andres Wyman MD [address], [address], [place], [address], [employer] 3 12:04:25 Allergic conjunctivi tis of bilateral eyes 3073403896740 02 Active 2022 Andres Wyman MD [address], [address], [place], [address], [employer] 3 17:10:13 Allergic contact dermatitis 778839348 Active 2022 Andres Wyman MD [address], [address], [place], [address], [employer] 3 14:23:15 Bronchitis 86575903 Active 2022 Andres Wyman MD [address], [address], [place], [address], [employer] 3 14:06:40 Hypertensiv e disorder 43578855 Active 2022 Andres Wyman MD [address], [address], [place], [address], [employer] 3 14:17:28 Bilateral earache 484465423 Active 2022 Andres Wyman MD [address], [address], [place], [address], [facility] 3 14:18:05 Vaginitis 37061645 Active 2023 LUCITA Coronel [address], [address], [place], [address], [facility] 4 16:11:02 Obstructive sleep apnea syndrome 47330809 Active 2023 Andres Wyman MD [address], [address], [place], [address], [facility] 4 11:50:27 Seasonal allergic rhinitis 430998011 Active 2023 Andres Wyman MD [address], [address], [place], [address], [facility] 4 11:51:30 Tinea corporis 66147870 Active 2023 Andres Wyman MD [address], [facility], [place], [address], [facility] 4 11:52:37 Subclinical hyperthyroi dism 866801978 Active 2023 Andres Wyman MD [address], [place] [address], [place], [address], [facility] 4 12:04:56 Urinary tract infectious disease 48464158 Active 2023 Andres Wyman MD [address], [address] [address], [place], [address], [facility] 4 15:17:08 Morbid obesity 599300926 Active 2024 Andres Wyman MD [address], [address] [address], [place], [address], [facility] 5 14:04:46 Notes:Andres Wyman MD [phone] [facility] home sleep study 03/23/23 AHI = 87, supine AHI = 100 [facility] titration sleep study 06/22/23 ResMed medium AirFit N20 nasal mask @ 10 cmH2O Medical History: Allergic conjunctivitis Obesity with very severe OSAHS, AHI = 87, 03/23/23, on CPAP c/o IVRC Gestational hypertension Vit D insufficiency HSV infection Problem Notes None recorded. Procedures Surgical History Date Name Laterality Status Provider Name and Address Organization Details Recorded Time 2 Date of Last Pap Smear completed ERIK Eng [facility] 01/31/2023 14:09:04 1 section completed ERIK Eng [facility] 01/31/2023 14:07:44 drainage of boil of skin completed Dorina Andrew RN [facility] 01/31/2023 14:08:01 Imaging Results None recorded. Procedure Notes None recorded. Medical Equipment None Reported. Allergies Allergen ID Allergen Name Allergen Category Reaction Reaction Severity Criticality Documentation Date Start Date Code Code System Note Provider Name and Address Organization Details Recorded Time 94782 Product containin g penicilli n (product) medicatio n Not available Not available Not available 01/31/2023 43154 8001 [facility] 14:04[facility]15 [address]275 Substance with sulfonami de structure and antibacte rial mechanism of action (substanc e) medicatio n Not available Not available Not available 01/31/2023 31506 8003 [facility]ED [facility] 3 14:04:21 Medications Name Sig Start Date Stop Date Status Note LastModified by Organization Details LastModified Time terbinafi ne HCl 1 % topical cream APPLY TOPICALL Y TWICE A DAY 03/30 completed Not Available Not Available Not Available doxycycli ne hyclate 100 mg capsule TAKE 1 CAPSULE BY MOUTH TWICE A DAY FOR 7 DAYS 01/31 completed Not Available Not Available Not Available azithromy patrick 250 mg tablet TAKE 2 TABLETS (500 MG) BY ORAL ROUTE ONCE DAILY FOR 1 DAY THEN 1 TABLET (250 MG) BY ORAL ROUTE ONCE DAILY FOR 4 DAYS 04/21 completed Not Available Not Available Not Available fluconazo le 150 mg tablet TAKE 1 TABLET BY MOUTH DIRECTED FOR 1 DAY 03/07 completed Not Available Not Available Not Available ketotifen 0.025 % (0.035 %) eye drops INSTILL 1 DROP INTO AFFECTED EYE(S) BY OPHTHALM IC ROUTE 2 TIMES PER DAY 03/21 completed Not Available Not Available Not Available valacyclo vir 1 gram tablet TAKE 1 TABLET BY MOUTH EVERY 12 HOURS DIRECTED FOR 10 DAYS 06/06 completed Not Available Not Available Not Available lisinopri l 20 mg tablet Take 1 tablet every day by oral route as directed for 90 days. 2024 active Not Available Not Available Not Avai lable tetracain e 0.5 % eye drops Apply 1 drop every 6 hours by ophthalm ic route as needed for 3 days. 03/21 completed Not Available Not Available Not Available prednison e 20 mg tablet TAKE 1 TABLET BY MOUTH EVERY DAY 08/17 completed Not Available Not Available Not Available phentermi ne 15 mg capsule TAKE 1 CAPSULE BY MOUTH EVERY DAY IN THE MORNING 05/30 completed Not Available Not Available Not Available metronida zole 500 mg tablet PLEASE SEE ATTACHED FOR DETAILED DIRECTIO NS 06/06 completed Not Available Not Available Not Available phentermi ne 37.5 mg tablet active Not Available Not Available No t Available fexofenad ine 180 mg tablet TAKE 1 TABLET BY MOUTH EVERY DAY UNTIL DIRECTED TO STOP 01/31 completed Not Available Not Available Not Available valacyclo vir 500 mg tablet TAKE 1 TABLET BY MOUTH DAILY active Not Available Not Available No t Available ciproflox acin 500 mg tablet TAKE 1 TABLET BY MOUTH EVERY 12 HOURS FOR 5 DAYS 05/17 completed Not Available Not Available Not Available triamcino lone acetonide 0.1 % topical cream APPLY THIN LAYER TOPICALL Y TO THE AFFECTED AREA TWICE DAILY 03/30 completed Not Available Not Available Not Available phentermi ne 30 mg capsule TAKE 1 CAPSULE BY MOUTH EVERY DAY IN THE MORNING 08/17 completed Not Available Not Available Not Available amoxicill in 875 mg tablet TAKE 1 TABLET BY MOUTH EVERY 12 HOURS FOR 7 DAYS 01/31 completed Not Available Not Available Not Available ciproflox acin 0.3 % eye drops INSTILL 2 DROPS INTO IN AFFECTED EYE(S) FOUR TIMES DAILY X 5 DAYS 03/21 completed Not Available Not Available Not Available baclofen 10 mg tablet TAKE ONE-HALF TO 1 TABLET 3 TIMES A DAY NEEDED FOR PAIN 03/28 completed Not Available Not Available Not Available benzonata te 100 mg capsule TAKE 1 CAPSULE BY MOUTH 3 TIMES A DAY NEEDED FOR COUGH 01/31 completed Not Available Not Available Not Available doxycycli ne monohydra te 100 mg capsule TAKE 1 CAPSULE BY MOUTH TWICE A DAY FOR 7 DAYS 01/31 completed Not Available Not Available Not Available clotrimaz ole-betam ethasone 1 %-0.05 % topical cream PLEASE SEE ATTACHED FOR DETAILED DIRECTIO NS 03/30 completed Not Available Not Available Not Available lisinopri l 10 mg tablet Take 1 tablet by mouth daily as directed . 03/14 completed Not Available Not Available Not Available codeine 10 mg-guaife nesin 100 mg/5 mL oral liquid TAKE 10 ML BY MOUTH EVERY 8 HOURS FOR 5 DAYS NEEDED 04/21 completed Not Available Not Available Not Available lisinopri l 5 mg tablet TAKE 1 TABLET BY MOUTH EVERY DAY DIRECTED 03/07 completed Not Available Not Available Not Available acyclovir 200 mg capsule TAKE 1 CAPSULE BY MOUTH FIVE TIMES DAILY FOR 10 DAYS 03/07 completed Not Available Not Available Not Available ergocalci ferol (vitamin D2) 1,250 mcg (50,000 unit) capsule Take 1 capsule every week by oral route as directed . 2024 active Not Available Not Available Not Avai lable clobetaso l 0.05 % topical ointment APPLY TOPICALL Y TO TO THE AFFECTED AREA ON ARMS AND LEGS FOR 2 WEEKS ON THEN 2 WEEKS OFF 03/28 completed Not Available Not Available Not Available azelastin e 137 mcg (0.1 %) nasal spray ADMINIST ER 2 SPRAYS 2 TIMES A DAY UNTIL DIRECTED TO STOP. USE NEEDED 01/31 completed Not Available Not Available Not Available methylpre dnisolone 4 mg tablets in a dose pack FOLLOW PACKAGE DIRECTIO NS 04/21 completed Not Available Not Available Not Available cefdinir 300 mg capsule TAKE 1 CAPSULE (ORAL) EVERY 12 HOURS FOR 10 DAYS SP: RC NOONAN MD 01/31 completed Not Available Not Available Not Available fluticaso ne propionat e 50 mcg/actua tion nasal spray,n[facility]is [facility] [place] 2 sprays every day by intranas al route as directed . 2024 active Not Available Not Available Not Avai lable spironola ctone 50 mg tablet TAKE 1 TABLET BY MOUTH EVERY DAY IN THE MORNING 03/28 completed Not Available Not Available Not Available neomycin- polymyxin -hydrocor t 3.5 mg-10,000 unit/mL-1 % ear drops,nargis p INSTILL 3 DROPS INTO AFFECTED EAR(S) BY OTIC ROUTE 3 TIMES PER DAY 03/07 completed Not Available Not Available Not Available Saline Nasal 0.65 % spray aerosol IRRIGATE NOSE TWICE DAILY 01/31 completed Not Available Not Available Not Available BD Ultra-Fin e Mini Pen Needle 31 gauge x 3/16 OK FOR GENERIC PEN NEEDLES TO GO WITH SAXENDA DAILY. active Not Available Not Available No t Available Pen Needle 31 gauge x 1/4 Ok for generic pen needles to go with Saxenda daily. 2024 active Not Available Not Available Not Avai lable levocetir izine 5 mg tablet Take 1 tablet every day by oral route as directed for 90 days. 03/14 completed Not Available Not Available Not Available Saxenda 3 mg/0.5 mL (18 mg/3 mL) subcutane ous pen injector INJECT 3MG ONCE A DAY DIRECTED . 06/05 completed it wasn't working Not Available Not Available Not Available Wegovy 2.4 mg/0.75 mL subcutane ous pen injector INJECT 2.4 MG EVERY WEEK BY SUBCUTAN EOUS ROUTE DIRECTED . 06/06 completed Not Available Not Available Not Available Wegovy 1.7 mg/0.75 mL subcutane ous pen injector Inject by subcutan eous route for 28 days. active Not Available Not Available No t Available Wegovy 1 mg/0.5 mL subcutane ous pen injector Inject 1 mg every week by subcutan eous route as directed . 2024 active Not Available Not Available Not Avai lable Wegovy 0.5 mg/0.5 mL subcutane ous pen injector INJECT 0.5MG SUB-Q EVERY WEEK 06/06 completed Not Available Not Available Not Available Vitals Date Recorded Body height Body mass index (BMI) Body weight Body temperature Oxygen saturation Oxygen saturation in Arterial blood by Pulse oximetry Heart rate Systolic And Diastolic Provider Name and Address Organization Details Last Updated DateTime 5 160.02 cm 40.9 kg/m2 121092. 19 g 98.3 [degF] 96 % 96 % 90 /min 120/85 mm[Hg] Katia Fontana RN [facility] [employer] [facility] 5 10:48:08 Date Recorded Body height Body mass index (BMI) Body weight Body temperature Oxygen saturation Oxygen saturation in Arterial blood by Pulse oximetry Heart rate Systolic And Diastolic Provider Name and Address Organization Details Last Updated DateTime 5 160.02 cm 43.3 kg/m2 027848. 29 g 97.3 [degF] 96 % 96 % 83 /min 120/78 mm[Hg] Katia Fontana RN [facility] [employer] [facility] 5 11:24:14 Date Recorded Body height Body mass index (BMI) Body weight Body temperature Oxygen saturation Oxygen saturation in Arterial blood by Pulse oximetry Heart rate Systolic And Diastolic Provider Name and Address Organization Details Last Updated DateTime 5 160.02 cm 44 kg/m2 446280. 06 g 97.4 [degF] 99 % 99 % 72 /min 124/80 mm[Hg] Katia Fontana RN [facility] [employer] [facility] 5 10:11:07 Date Recorded Body height Body mass index (BMI) Body weight Body temperature Oxygen saturation Oxygen saturation in Arterial blood by Pulse oximetry Heart rate Systolic And Diastolic Provider Name and Address Organization Details Last Updated DateTime 5 160.02 cm 43.2 kg/m2 191771. 89 g 97.3 [degF] 96 % 96 % 76 /min 140/80 mm[Hg] Katia Fontana RN [facility] [employer] [facility] 5 10:39:07 Social History Question Answer Notes LastModified by Organizat ion Details LastModified Time Tobacco Smoking Status Never Smoker Dorina Andrew RN [facility], [facility] [employer] [facility] 01/31/2023 14:06:27 Do You Have An Advance Directive? No [email or web address] Information not available 01/31/2023 What Is Your Level Of Caffeine Consumption? Occasional One Coffee/w annie [email or web address] Information not available 06/27/2025 In The 14 Days Before Symptom Onset, Have You Had Close Contact With A Laboratory-confi rmed COVID-19 While That Case Was Ill? No [email or web address] Information not available 01/31/2023 In The 14 Days Before Symptom Onset, Have You Had Close Contact With A Person Who Is Under Investigation For COVID-19 While That Person Was Ill? No [email or web address] Information not available 01/31/2023 What Type Of Diet Are You Following? REGULAR [email or web address] Information not available 01/31/2023 What Is The Highest Grade Or Level Of School You Have Completed Or The Highest Degree You Have Received? [id number] [email or web address] Information not available 01/31/2023 Have There Been Any Changes To Your Family Or Social Situation? No [email or web address] Information not available 01/31/2023 Do You Use Insect Repellent Routinely? Yes [email or web address] Information not available 01/31/2023 Where Do You Live? [facility] [email or web address] Information not available 01/31/2023 Do You Have A Medical Power Of Accounting Manager? No [email or web address] Information not available 01/31/2023 How Many Children Do You Have? 1 Information not available 03/30/2024 Do You Have Any Pets? Yes Dog [email or web address] Information not available 01/31/2023 What Is Your Relationship Status? Single [email or web address] Information not available 01/31/2023 Do You Use Your Seat Belt Or Car Seat Routinely? Yes [email or web address] Information not available 01/31/2023 Do You Have Smoke And Carbon Monoxide Detectors In Your Home? Yes [email or web address] Information not available 01/31/2023 Are You Passively Exposed To Smoke? No [email or web address] Information not available 01/31/2023 Are There Any Smokers In Your House? No [email or web address] Information not available 01/31/2023 Do You Participate In Social Media? Yes Information not available 03/30/2024 Do You Use Sunscreen Routinely? Yes Information not available 01/31/2023 Has Tobacco Cessation Counseling Been Provided? No [email or web address] Information not available 06/27/2025 Have You Recently Traveled Abroad? No [email or web address] Information not available 01/31/2023 Are You Currently In School? No [email or web address] Information not available 01/31/2023 Do You Have Any Dietary Restrictions? No [email or web address] Information not available 01/31/2023 Sex: Unknown Functional Status Question Answer Note LastModified by Organizat ion Details LastModified Time Do you use any illicit or recreational drugs? No [email or web address] Information not available 01/31/2023 Do you or have you ever used any other forms of tobacco or nicotine? No [email or web address] Information not available 06/27/2025 What is your level of alcohol consumption? Occasional [email or web address] Information not available 01/31/2023 Are you currently employed? Yes [email or web address] Information not available 01/31/2023 What is your occupation? [employer] Information not available 01/31/2023 What is your exercise level? Occasional Information not available 01/31/2023 Mental Status Question Answer Note LastModified by Organization D etails LastModified Time Do you feel stressed (tense, restless, nervous, or anxious, or unable to sleep at night)? [id number] [email or web address] Information not available 01/31/2023 Family History Relationship Description Onset Age of this Age Resolved Age Notes LastModified by Organization Details LastModified Time Mother Hypertensive disorder Not available 2022 14:04:54 Mother Hyperlipidem ia [email or web address] Not available 06/06 10:04:15 Unspecified Relation Diabetes mellitus moms side Not available 01/31/2023 14:05:23 Unspecified Relation Malignant neoplasm of breast moms side [email or web address] Not available 06/06/2025 10:04:15 Medical History No medical history recorded. Gynecological History Statement/Question Response How many live births 2 Abnormal Pap N Date of Last Colonoscopy Flow Light Frequency of Cycle (Q days) 28 Most Recent Bone Density Date of LMP 03/26/2024 Duration of Flow (days) 2 Date of Last Pap Smear 11/07/2021 Most Recent Mammogram Obstetrics History GPAL:G 2 P 0 0 0 0 Immunizations Vaccine Type Date Status Note Provider Nam e and Address Organization Details Recorded Time Tdap 01/31/2023 completed Dorina Andrew RN null, [facility] 01/31/2023 14:43:43 Influenza, split virus, quadrivalent, PF 08/17/2023 completed Dhiraj Penn null, [facility] 08/17/2023 14:28:34 Influenza, split virus, trivalent, PF 11/27/2024 completed Katia Fontana RN null, [facility] 11/28/2024 11:24:12 Past Encounters Encounter ID Performer Location Encounter Start Date Encounter Closed Date Diagnosis/Indication Diagnosis SNOMED-CT Code Diagnosis ICD10 Code Diagnosis IMO Codes Diagnosis Note [id number] Andres Wyman MD [address] [address] 01/31/2023 13:54:53 01/31/2023 14:52:10 Adult health examination 418337553 Z00.00 Obesity 374452300 E66.9 Active immunization 3387 9002 Z23 Vitamin D deficiency 347 33706 E55.9 Elevated blood-pressure reading without diagnosis of hypertension 834901443 R03.0 Sleep apnea 17116022 G47 .30 [id number] Andres Wyman MD [address] [address] 02/21/2023 14:00:53 02/21/2023 14:22:58 Obesity 617958873 E66.9 Vitamin D deficiency 347 88562 E55.9 Sleep apnea 37330660 G47 .30 [id number] Andres Wyman MD [address] [address] 03/14/2023 16:55:39 03/14/2023 17:19:42 Sensation of irritation of eye proper 302800410 H57.89 Allergic conjunctivitis of bilateral eyes 1028071963 94125 H10.13 [id number] Andres Wyman MD [address] [address] 03/21/2023 14:07:53 03/21/2023 14:35:44 Obesity 457750314 E66.9 Sleep apnea 33744225 G47 .30 Bronchitis 75824891 J40 [id number] Andres Wyman MD [address] [address] 04/21/2023 14:03:37 04/21/2023 14:25:00 Obesity 275094627 E66.9 Cough 04900271 R05.9 Sleep apnea 94287877 G47 .30 [id number] Andres Wyman MD [address] [address] 05/30/2023 14:01:38 05/30/2023 14:41:24 Obesity 911419685 E66.9 Elevated blood-pressure reading without diagnosis of hypertension 962160935 R03.0 Bronchitis 44475259 J40 resolved Allergic c ontact dermatitis 106410531 L23.9 [id number] Andres Wyman MD [address] [address] 06/30/2023 14:03:52 06/30/2023 14:32:52 Obesity 426052560 E66.9 Sleep apnea 13850964 G47 .30 Hypertensive disorder 38 501726 I10 [id number] Andres Wyman MD [address] [address] 08/17/2023 14:04:18 08/17/2023 14:31:29 Hypertensive disorder 08362606 I10 Obesity 243487387 E66.9 Administra tion of influenza vaccine 06004171 Z23 Bilateral earache 080893 003 H92.03 [id number] Andres Wyman MD [address] [address] 03/07/2024 11:30:32 03/07/2024 12:08:40 Hypertensive disorder 92018788 I10 Obesity 228978498 E66.9 Adult [facility] th examination 927490454 Z00.00 Vitamin D deficiency 347 31734 E55.9 Obstructiv e sleep apnea syndrome 16203764 G47.33 Seasonal a llergic rhinitis 451257176 J30.2 Tinea corporis 92352325 B35.4 [id number] Andres Wyman MD [address] [address] 03/28/2024 11:55:57 03/28/2024 12:30:15 Hypertensive disorder 22539681 I10 Obesity 241321782 E66.9 Vitamin D deficiency 347 88209 E55.9 Obstructiv e sleep apnea syndrome 20913923 G47.33 Seasonal a llergic rhinitis 330864299 J30.2 Tinea corporis 61057572 B35.4 Improved [facility] hyperthyroidism 244530531 E05.90 [id number] Andres Wyman MD [address] [address] 03/30/2024 10:49:57 03/30/2024 11:57:09 Gynecologic examination 09539222 Z01.862 [id number] Andres Wyman MD [address] [address] 05/17/2024 11:39:42 05/17/2024 12:01:48 Hypertensive disorder 50421459 I10 Obesity 424857808 E66.9 Vitamin D deficiency 347 20925 E55.9 Obstructiv e sleep apnea syndrome 14364667 G47.33 Seasonal a llergic rhinitis 654136774 J30.2 Subclinica l hyperthyroidism 581833369 E05.90 [id number] Andres Wyman MD [address] [address] 06/18/2024 12:20:09 06/18/2024 12:53:15 Vitamin D deficiency 92404406 E55.9 Obesity 933134879 E66.9 Subclinica l hyperthyroidism 648321662 E05.90 Hypertensive disorder 38 602350 I10 Obstructiv e sleep apnea syndrome 74343173 G47.33 Seasonal a llergic rhinitis 888374260 J30.2 [id number] Andres Wyman MD [address] [address] 07/23/2024 12:17:45 07/23/2024 12:53:25 Subclinical hyperthyroidism 892030095 E05.90 Hypertensive disorder 38 464628 I10 Obesity 280156416 E66.9 Obstructiv e sleep apnea syndrome 73426557 G47.33 Seasonal a llergic rhinitis 053700117 J30.2 [id number] Andres Wyman MD [address] [address] 11/27/2024 10:38:32 11/27/2024 11:09:50 Hypertensive disorder 50678943 I10 Subclinica l hyperthyroidism 773063087 E05.90 Obesity 398001192 E66.9 Obstructiv e sleep apnea syndrome 57867452 G47.33 Seasonal a llergic rhinitis 790667760 J30.2 Administra tion of influenza vaccine 57997857 Z23 [id number] Andres Wyman MD [address] [address] 11/30/2024 11:46:38 11/30/2024 12:06:15 [id number] Andres Wyman MD [address] [address] 03/14/2025 11:12:53 03/14/2025 11:36:57 Seasonal allergic rhinitis 648055068 J30.2 Hypertensive disorder 38 189243 I10 Subclinica l hyperthyroidism 119360430 E05.90 Chronic Obesity 085274179 E66.9 Obstructiv e sleep apnea syndrome 64022088 G47.33 Vitamin D deficiency 347 74048 E55.9 [id number] Andres Wyman MD [address] [address] 06/06/2025 10:03:10 06/06/2025 10:58:17 Subclinical hyperthyroidism 677589643 E05.90 Chronic Hypertensive disorder 38 426641 I10 Seasonal a llergic rhinitis 628137615 J30.2 Vitamin D deficiency 347 24949 E55.9 Obesity 477398801 E66.9 Obstructiv e sleep apnea syndrome 32241913 G47.33 [id number] Andres Wyman MD [facility] [address] [address] 06/27/2025 10:30:11 06/27/2025 11:00:57 Hypertensive disorder 97035607 I10 Seasonal a llergic rhinitis 271376423 J30.2 Subclinica l hyperthyroidism 236760380 E05.90 Chronic Vitamin D deficiency 347 64734 E55.9 Obesity 990250805 E66.9 Obstructiv e sleep apnea syndrome 00059568 G47.33 Adult heal th examination 219708509 Z00.00 Health Concerns Section Related Observation LastModified by Organization Detai ls LastModified Time None Recorded Concern Status LastModified by Organization Details LastModified Time None Recorded Advance Directives Directive N: Payers Insurance Date Sequence Insurance Name Policy Number Policy Hanks Covered Member ID Hanks Member ID Guarantor Name 06/03/2025 1 [place] [id number] Didier Coker [id number] Didier Coker 07/29/2025 1 [employer]ET[employer] (POS II) [id number] Didier Coker [id number] Didier Coker Notes Date Note Type Note Provider Name and Address Organization Details Recorded Time 11/27/2024 text/html Pt is here for f/u on her labs and chronic conditions. Doing overall well. Denies any problem with meds. Pt has not gone for lab yet. Pt says she is busy with other things. Pt did not like Wegovy and so she wants to go back on Saxenda and Phentermine for her wt concerns. No problem with them in the past. Pt has not gone for sleep study yet. No more concerns with cough. Her BP is better at home as per pt. Pt has lost about 30 lbs on Phentermine in the past. Andres Wyman MD [address] [place] [address], [place], [address], [facility] [employer] 11/27/2024 11:15:56 03/14/2025 text/html Pt is here for f/u on her labs and chronic conditions. Doing overall well. Denies any problem with meds. Pt did not like Wegovy and so she wants to go back on Saxenda for her wt concerns. Pt has not gone for sleep study yet. No more concerns with cough. Her BP is better at home as per pt. Pt has lost about 30 lbs on Phentermine in the past. Pt has seen Endo for her thyroid problem in the past too. Andres Wyman MD [address], [address], [place], [address], [employer] 03/14/2025 11:45:27 06/06/2025 text/html Pt is here for f/u on her meds and chronic conditions. Doing overall well. Denies any problem with meds. Pt did not like Saxenda and so she wants to go back on Wegovy for her wt concerns. Pt has not gone for sleep study yet. No more concerns with cough. Her BP is better at home as per pt. Pt has lost about 30 lbs on Phentermine in the past. Pt has seen Endo for her thyroid problem in the past too. Andres Wyman MD [address], [address], [place], [address], [place] 06/06/2025 10:21:25 06/27/2025 text/html Pt is here for her annual exam. Doing overall well. Denies any problem with meds. Pt has not got Cpap yet. No more concerns with cough. Her BP is better at home as per pt. Pt has lost about 30 lbs on Phentermine in the past. Pt has seen Endo for her thyroid problem in the past too. Andres Wyman MD [address], [address], [place], [address], [place] 06/27/2025 10:55:18 OBGyn Episode No OBEpisode recorded.
--- OUTSIDE RECORDS SUMMARY | 2025-08-26 08:15 | XMS_ITS | Encounter Summary ---
Author Organization [facility] Health Address [address] [place] [address] Care Team Providers Care Air Pollution Control Engineer Name Role Phone Amina Brown MD Primary Care Provider [phone] Nohemi Vallecillo MD Unavailable Amina Brown MD Unavailable [phone] Encounter Details Date Type Department Care Team (Late st Contact Info) Description 10/19/2017 [facility] Outpatient Visit EXTERNAL NON-[facility] DEPT Amina Brown MD [facility] [place] [address] [place] [address] Social History Tobacco Use Types Packs/Day Years Used Date Smoking Tobacco: Never Smokeless Tobacco: Never Alcohol Use Standard Drinks/Week Comments Yes 0.8 (1 standard drink = 0.6 oz p ure alcohol) rarely Comments No Sex and Gender Information Value Date Recorded Sex Assigned at Not on file 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 Answer Date of Assessment Author No 10/18/2017 11:45 AM Iliana Gilbert RN * Is person blind or have serious difficulty seeing? Answer Date of Assessment Author No 10/18/2017 11:45 AM Iliana Gilbert RN * Does person have serious [...] on filedocumented in this encounter Care Teams Air Pollution Control Engineer Relationship Specialty Start Date End Date Amina Brown MD PCP - General 10/08/08 06/22/22 Amina Brown MD [address] [place] [phone] PCP - Attributed-[place] [employer] 01/14/18 01/20/20 Nohemi Vallecillo MD [address] [facility] [address] [place] [address] Obstetrics and Gynecology 06/23/22 documented as of this encounter
--- OUTSIDE RECORDS SUMMARY | 2025-08-26 08:15 | XMS_ITS | Encounter Summary ---
Author Organization [facility] Address [address] [place] [address] Care Team Providers Care Order Booker Name Role Phone Amina Brown MD Primary Care Provider [phone] Nohemi Vallecillo MD Unavailable Amina Brown MD Unavailable [phone] Encounter Details Date Type Department Care Team (Late st Contact Info) Description 10/12/2017 [facility] Outpatient Visit [facility] Medical [facility] - Family Medicine [id number] [place] [address] Amina Brown MD [address] [place] [address] Social History Tobacco Use Types Packs/Day Years Used Date Smoking Tobacco: Never Smokeless Tobacco: Never Alcohol Use Standard Drinks/Week Comments Yes 0.8 (1 standard drink = 0.6 oz p ure alcohol) rarely Comments No Sex and Gender Information Value Date Recorded Sex Assigned at Not on file 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 Gender Identity Not on file Sexual Orientation Not on file documented as of this encounter Plan of Treatment Not on file documented as of this encounter Visit Diagnoses Not on filedocumented in this encounter Care Teams Order Booker Relationship Specialty Start Date End Date Amina Brown MD PCP - General 10/08/08 06/22/22 Amina Brown MD [address] [place] [address] PCP - Attributed-[place] [employer] 01/14/18 01/20/20 Nohemi Vallecillo MD [address] [facility] [address] [place] [address] Obstetrics and Gynecology 06/23/22 documented as of this encounter
[2025-08-26 08:20] VITALS: BP 147/83; RESP 17; TEMP 36.4; O2SAT 100
[2025-08-26 08:28] LABS: BEDSIDEPREGUCG Negative (Negative)
[2025-08-26] MEDS: MECLIZINE HCL 25 MG TABLET PO (08:53)
[2025-08-26] MEDS: SODIUM CHLORIDE 0.9% IV 1,000 ML 999 ML IV CONT (08:53)
[2025-08-26 09:00] LABS: Hematocrit 36.7 % (37.0-47.0); Hemoglobin 12.3 g/dL (12.0-15.0); Immature Granulocyte Percent A 0.6 % (0-0.5); Lymphocytes Absolute Auto 1.38 K/mm3 (0.9-3.2); Mean Corpuscular HGB Conc 33.5 g/dl (32-36); Mean Corpuscular Hemoglobin 31.1 pg (26-34); Mean Corpuscular Volume 92.9 fl (80-100); Nucleated Red Blood Cells Absolute Auto 0.000 K/mm3 (0.0-0.012); Nucleated Red Blood Cells Perc 0.0 % (0.0-0.2); Platelet Count Result 253 k/mm3 (150-375); Red Blood Count 3.95 M/mm3 (4.2-5.4); White Blood Count 7.0 K/mm3 (4.5-10.0)
[2025-08-26 09:07] LABS: Add Urine Microscopic? YES; Appearance Urine Cloudy (Clear); Glucose Urine UA Trace mg/dL (Negative); Leukocyte Esterase Ur Negative LEU/UL (Negative); Nitrate Urine Negative (Negative); Non Pathogenic Casts 0-2; Specific Grav Ur 1.027 (1.001-1.035)
[2025-08-26 09:12] LABS: Alanine Aminotransferase 16 U/L (6-35); Albumin Level 4.0 g/dL (3.5-5.1); Alkaline Phosphatase 64 U/L (38-126); Anion Gap 7 mmol/L (4-12); Aspartate Amino Transferase 20 U/L (14-36); Bilirubin,Total 0.5 mg/dL (0.2-1.3); Blood Urea Nitrogen 17 mg/dL (7-17); Calcium 8.5 mg/dL (8.4-10.2); Carbon Dioxide 27 mmol/L (22-30); Chloride 104 mmol/L (98-107); Estimated CRCL calculation 112 ml/min; Estimated Glomerular Filt Rate > 60; Glucose 131 mg/dL (65-110); Potassium 3.4 mmol/L (3.4-5.0); Sodium 138 mmol/L (137-145); Total Protein 7.0 g/dL (6.3-8.2)
--- OUTSIDE RECORDS SUMMARY | 2025-08-26 09:17 | XMS_ITS | Clinical Summary ---
Author Organization [facility] Address [address] [address] Care Team Providers Care Extrusion Die Coordinator Name Role Phone Unavailable Primary Care Provider [...] 5 Active fluticasone propionate (FLONASE) 50 mcg/spray [place], Suspension nasal inhaler Administer 2 Sprays in [...] Description 03/24/2026 2:45 PM CDT Office Visit [facility] SOFTWARE ENGINEER INTERN - [facility] [address] [facility] [address] [place] [address] Thalia Aguirre, DO [address] [facility] [facility] [address] [place] [address] Health Maintenance Due Date Last [...] HPV VACCINES Completed 02/05/2013, 02/2012, 11/18/2011 Insurance [facility]
--- OUTSIDE RECORDS SUMMARY | 2025-08-26 09:17 | XMS_ITS | Encounter Summary ---
Author Organization [facility] Health Address [address] [place] [address] Care Team Providers Care Media Buyer Name Role Phone Amina Brown MD Primary Care Provider [phone] Nohemi Vallecillo MD Unavailable Amina Brown MD Unavailable [phone] Encounter Details Date Type Department Care Team (Late st Contact Info) Description 10/26/2017 [facility] Outpatient Visit [facility] [address] [place] [address] [place] [address] [place] [address] Social History Tobacco Use Types Packs/Day Years Used Date Smoking Tobacco: Never Smokeless Tobacco: Never Alcohol Use Standard Drinks/Week Comments Yes 0.8 (1 standard drink = 0.6 oz p ure alcohol) rarely Comments No Sex and Gender Information Value Date Recorded Sex Assigned at Not on file 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
--- OUTSIDE RECORDS SUMMARY | 2025-08-26 09:17 | XMS_ITS | Clinical Summary ---
Author Organization [facility] Address [address] [address] Phone Care Team Providers Care Building Materials Sales Attendant Name Role Phone Unknown, Notinfile Primary Care [...] ACCESS OOS BLUE ACCESS OOS Care Teams Building Materials Sales Attendant Relationship Specialty Start Date End Date Unknown, Notinfile PCP - General 04/22/22
--- OUTSIDE RECORDS SUMMARY | 2025-08-26 09:17 | XMS_ITS | Clinical Summary ---
Author Organization [facility] Address [address] [facility] [address] [place] [address] Care Team Providers Care Backpackers Manager Name Role Phone Nohemi Vallecillo MD Unavailable Source Comments [facility],non-owned Affiliates and Associated Physician Practices is amultiple site organization consisting of ambulatory clinics and hospital sitesin [place], [place], [place] and [place]. This disclosure is being madepursuant to the Care Everywhere program and may not contain all information available regarding this patient. 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 Specimen Adequacy [facility] ACCOUNT BILL Comment: Satisfactory for evaluation. Endocervical and/or squamous metaplastic cells (endocervical component) are present. Clinician Provided ICD10 [facility] ACCOUNT BILL Comment: Z01.419 Z11.51 Z20.2 B00.9 Performed by [facility] ACCOUNT BILL Comment:Temitope Andrew, Cyto technologist (ASCP) QC Reviewed by [facility] ACCOUNT BILL Comment:Myrna Marquez pervisory Credit Resolution Representative (ASCP) Comment . [facility] ACCOUNT BILL Note [...] Resulting Agency Comment Lab Testing performed at: [facility] [phone] [place] Izabel Oneill DO LAB - PATHOLOGY/CYTOLOGY ORDERAB LES Final Result [facility] ACCOUNT BILL [address] [place] [address] * HIV-1 HIV-2 ANTIGEN/ANTIBODY W RFLX (01/27/2018 11:45 AM CDT) HIV Screen 4th Generation w Reflex Non Reactive Non Reactive [facility] ACCOUNT BILL Blood BLOOD SPECIMEN / Unknown 01/27/2018 11:45 AM CDT 01/27/2018 Narrative Resulting Agency [facility] [address] [facility] [phone] [place] Amina Brown MD LAB - SEROLOGY ORDERABLES Final Result [facility] ACCOUNT BILL [address] [place] [address] * HEPATITIS C ANTIBODY (01/27/2018 11:45 AM CDT) Hepatitis C Antibody Non Reactive Non Reactive [facility] ACCOUNT BILL Comment: Non Reactive - Antibodies to Hepatitis C virus (HCV) were no t detected, result does not exclude early acute HCV infection. Blood BLOOD SPECIMEN / Unknown 01/27/2018 11:45 AM CDT 01/27/2018 Narrative Resulting Agency Comment [facility] [address] [facility] [phone] [place] Amina Brown MD LAB - CHEMISTRY ORDERABLES Destinee cota Result [facility] ACCOUNT BILL [address] [place] [address] from Last 3 Months or Most Recently Relevant to Health Maintenance Insurance ANTHEM * Guarantor: APRYL CLARK Account Type Relation to Patient Date of Phone Billing Address Personal/Family 1990 [address] [place] [address] Care Teams Backpackers Manager Relationship Specialty Start Date End Date Nohemi Vallecillo MD [address] [facility] [address] [place] [address] Obstetrics and Gynecology 06/23/22
--- OUTSIDE RECORDS SUMMARY | 2025-08-26 09:18 | XMS_ITS | Encounter Summary ---
Author Organization [facility] Address [address] [facility] [place] [address] Care Team Providers Care Manager Of Quality Name Role Phone Amina Brown MD Primary Care Provider [phone] Nohemi Vallecillo MD Unavailable Amina Brown MD Unavailable [phone] Encounter Details Date Type Department Care Team (Late st Contact Info) Description 10/12/2017 [facility] Outpatient Visit [facility] Medical [facility] - Family Medicine [id number] [place] [phone] Amina Brown MD [address] [place] [address] Social History Tobacco Use Types Packs/Day Years Used Date Smoking Tobacco: Never Smokeless Tobacco: Never Alcohol Use Standard Drinks/Week Comments Yes 0.8 (1 standard drink = 0.6 oz p ure alcohol) rarely Comments No Sex and Gender Information Value Date Recorded Sex Assigned at Not on file 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 Gender Identity Not on file Sexual Orientation Not on file documented as of this encounter Plan of Treatment Not on file documented as of this encounter Visit Diagnoses Not on filedocumented in this encounter Care Teams Manager Of Quality Relationship Specialty Start Date End Date Amina Brown MD PCP - General 10/08/08 06/22/22 Amina Brown MD [address] [place] [address] PCP - Attributed-[place] [employer] 01/14/18 01/20/20 Nohemi Vallecillo MD [address] [facility] [address] [place] [address] Obstetrics and Gynecology 06/23/22 documented as of this encounter
--- OUTSIDE RECORDS SUMMARY | 2025-08-26 09:18 | XMS_ITS | Clinical Summary ---
Author Organization [facility] Address [address] [place] [address] Phone [email or web address] Care Team Providers Care Roving Teller Name Role Phone Unavailable Primary Care Provider Unavailabl e Allergies Active Allergy Reactions Criticality Noted Date Comments Amoxicillin Hives,Itching,Rash Low 11/23/2019 Penicillins Hives 03/31/2021 Soy Allergy (Obsolete) Hives,Itching,Rash Low 11/23 Sulfa Antibiotics Hives,Itching,Rash Low 11/23/2019 Harbert Oil Hives,Itching,Rash Low 11/23/2019 Medications levonorgestrel (MIRENA) [...] Immunization Administration Dates Next Due Covid-19 (Moderna Kenedy, 12yrs+) (CVX-207) 2020,07/02/2021 Influenza, (Afluria Fluarix Flulaval [...] Sex Assigned at Female 01/15/2021 9:40 AM PHOTOGRAMMETRIST Legal Sex Female 12:04 AM PHOTOGRAMMETRIST Gender Identity Female 11/20/2019 4:21 PM PHOTOGRAMMETRIST Sexual Orientation Straight 11/20/2019 4: 21 PM PHOTOGRAMMETRIST 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 General Improving(01/2020 4:27 PM CDT) Yes Carla Muro RD Cont exercise General On track( 4:27 PM CDT) Yes Carla Muro RD I will increase my fruit intake. General Yes Carla Muro RD I will increase my calcium intake. General Yes Carla Muor RD I will walk 20-30 minutes and do strength training 5 times a week. General Yes Carla Muro RD Insurance [facility] NO COPAY
--- OUTSIDE RECORDS SUMMARY | 2025-08-26 09:18 | XMS_ITS | Encounter Summary ---
Author Organization [facility] Health Address [address] [facility] [place] [address] Care Team Providers Care Assistant Production Editor Name Role Phone Amina Brown MD Primary Care Provider [phone] Nohemi Vallecillo MD Unavailable Amina Brown MD Unavailable [phone] Encounter Details Date Type Department Care Team (Late st Contact Info) Description 10/19/2017 [facility] Outpatient Visit EXTERNAL NON-[facility] DEPT Amina Brown MD [facility] [place] [address] Social History Tobacco Use Types Packs/Day Years Used Date Smoking Tobacco: Never Smokeless Tobacco: Never Alcohol Use Standard Drinks/Week Comments Yes 0.8 (1 standard drink = 0.6 oz p ure alcohol) rarely Comments No Sex and Gender Information Value Date Recorded Sex Assigned at Not on file 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
[2025-08-26 09:51] VITALS: PULSE 78; RESP 22; O2SAT 99
--- NOTE | 2025-08-26 10:54 | ED.GENADULT ---
HPI - General Adult General Chief complaint: Dizziness Stated complaint: dizzy Time Seen by Provider: 08/26/25 08:19 History of Present Illness HPI narrative: Patient is a 34-year-old female who presents ER with spinning dizziness. She woke up and turned over in her bed and experiences dizziness. Mild nausea. No facial weakness or slurred speech. No arm weakness. Symptoms worsen with lying backwards. Has not had vertigo previously. No sinus congestion or sore throat or cough. Related Data Home Medications ?Medication ?Instructions ?Recorded ?Confirmed ?Last Taken ?Type ergocalciferol (vitamin D2) 1,000 2,000 unit PO DAILY 01/13/24 01/13/24 Unknown History unit capsule lisinopril 10 mg tablet 10 mg PO DAILY 01/13/24 01/13/24 Unknown History valacyclovir 1 gram tablet 1,000 mg PO BID 01/13/24 01/13/24 Unknown History Allergies Allergy/AdvReac Type Severity Reaction Status Date / Time Penicillins Allergy Hives Verified 08/26/25 08:26 Sulfa (Sulfonamide Allergy Hives Verified 08/26/25 08:26 Antibiotics) Review of Systems Review of Systems: All systems reviewed & are unremarkable except as noted in HPI and below Constitutional: Constitutional: Reports no additional constitutional complaints ENT: Reports system reviewed and no additional complaints, except as documented Cardiovascular: Cardiovascular: Reports no additional cardiovascular complaints Respiratory: Respiratory: Reports no additional respiratory complaints Neurologic: Reports system reviewed and no additional complaints, except as documented [facility] Past Medical History Medical History (Updated 08/26/25 @ 11:06 by Dashawn Ford MD) Healthy female adult Exam Narrative: GENERAL: Well-appearing, well-nourished, and in no acute distress. HEAD: Normocephalic, atraumatic. EYES: PERRL and EOMI. ENT: Mucous membranes moist. CHEST: Clear to auscultation. No respiratory distress. HEART: Regular rate and rhythm. Normal peripheral pulses. EXTREMITIES: Normal range of motion. No edema. SKIN: Warm, dry, no rash. NEURO: Alert and oriented x3. PSYCH: Normal mood and affect. Course Course Emergency Course: Symptoms resolved with vertigo. Appropriate for discharge home. Urine with contaminant, will not treat bacteria. Vital Signs Vital signs: Vital Signs Temperature 97.6 F 08/26/25 08:20 Respiratory Rate 17 08/26/25 08:20 Blood Pressure 147/83 H 08/26/25 08:20 Pulse Oximetry 100 08/26/25 08:20 Oxygen Delivery Room Air 08/26/25 08:20 Temperature 97.6 F 08/26/25 08:20 Pulse Rate 78 08/26/25 09:51 Respiratory Rate 22 H 08/26/25 09:51 Blood Pressure 147/83 H 08/26/25 08:20 Pulse Oximetry 99 08/26/25 09:51 Oxygen Delivery Room Air 08/26/25 08:20 Medical Decision Making Vital Signs Vital Signs: Vital Signs Temperature 97.6 F 08/26/25 08:20 Respiratory Rate 17 08/26/25 08:20 Blood Pressure 147/83 H 08/26/25 08:20 Pulse Oximetry 100 08/26/25 08:20 Oxygen Delivery Room Air 08/26/25 08:20 Temperature 97.6 F 08/26/25 08:20 Pulse Rate 78 08/26/25 09:51 Respiratory Rate 22 H 08/26/25 09:51 Blood Pressure 147/83 H 08/26/25 08:20 Pulse Oximetry 99 08/26/25 09:51 Oxygen Delivery Room Air 08/26/25 08:20 Lab Data 08/26/25 08:48 08/26/25 08:48 Labs: Lab Results 08/26/25 08/26/25 Range/Units 08:26 08:48 WBC 7.0 (4.5-10.0) K/mm3 RBC 3.95 L (4.2-5.4) M/mm3 Hgb 12.3 (12.0-15.0) g/dL Hct 36.7 L (37.0-47.0) % MCV 92.9 (80-100) fl MCH 31.1 (26-34) pg MCHC 33.5 (32-36) g/dl RDW 12.9 (11.5-14.5) % Plt Count 253 (150-375) k/mm3 MPV 9.4 (7.4-10.4) fl Immature Gran % (Auto) 0.6 H (0-0.5) % Neut % (Auto) 73.1 (45.5-73.1) % Lymph % (Auto) 19.6 (18.3-44.2) % Porter % (Auto) 6.0 (2.6-8.5) % Eos % (Auto) 0.4 (0-4.4) % Baso % (Auto) 0.3 (0.2-1.2) % Lymph # (Auto) 1.38 (0.9-3.2) K/mm3 Porter # (Auto) 0.4 (0.1-0.6) K/mm3 Eos # (Auto) 0.0 (0-0.3) K/mm3 Baso # (Auto) 0.0 (0.0-0.1) K/mm3 Abs Immat Gran (auto) 0.04 H (0.00-0.031) K/mm3 Absolute Neuts (auto) 5.2 (1.3-6.7) K/mm3 Absolute Nucleated RBC 0.000 (0.0-0.012) K/mm3 Nucleated RBC % 0.0 (0.0-0.2) % Sodium 138 (137-145) mmol/L Potassium 3.4 (3.4-5.0) mmol/L Chloride 104 (98-107) mmol/L Carbon Dioxide 27 (22-30) mmol/L Anion Gap 7 (4-12) mmol/L BUN 17 (7-17) mg/dL Creatinine 0.72 (0.7-1.0) mg/dL Estim Creat Clear Calc 112 ml/min Estimated GFR > 60 (59 - ) Glucose 131 H (65-110) mg/dL Calcium 8.5 (8.4-10.2) mg/dL Total Bilirubin 0.5 (0.2-1.3) mg/dL AST 20 (14-36) U/L ALT 16 (6-35) U/L Alkaline Phosphatase 64 (38-126) U/L Total Protein 7.0 (6.3-8.2) g/dL Albumin 4.0 (3.5-5.1) g/dL Urine Color Yellow (Yellow) Urine Appearance Cloudy H (Clear) Urine pH 5.0 (5.0-9.0) Ur Specific [place] 1.027 (1.001-1.035) Urine Protein Trace (Negative) mg/dL Urine Glucose (UA) Trace H (Negative) mg/dL Urine Ketones 1+ H (Negative) mg/dL Ur Blood (Man) 2+ H (Negative) Urine Nitrate Negative (Negative) Urine Bilirubin Negative (Negative) Urine Urobilinogen 1.0 (<2.0) mg/dL Leukocyte Esterase Rfl Negative (Negative) JOSE JUAN/UL Urine RBC 0-2 (0-2) /hpf Urine WBC 0-5 (0-3) /hpf Ur Squamous Epith Cells Many H (Few) /hpf Urine Bacteria 2+ H /hpf Urine Casts 0-2 POC Urine HCG, Qual Negative (Negative) Discharge Plan Discharge Clinical Impression: Vertigo Patient Disposition: Home Condition: Stable Instructions: Vertigo (ED) Additional Instructions: Return ER if you have new weakness in arm or leg, you cannot walk straight, you lose consciousness, or have additional concerns. Patient Language: Estonian Prescriptions: New meclizine 25 mg tablet 25 mg PO TID Qty: 20 0RF No Action valacyclovir 1 gram tablet 1,000 mg PO BID lisinopril 10 mg tablet 10 mg PO DAILY Vitamin D2 1,000 unit Capsule 2,000 unit PO DAILY baclofen 10 mg tablet See Rx Instructions .ROUTE .COMPLEX Qty: 10 0RF Rx Instructions: 0.5 to 1 tablet TID PRN for pain terbinafine HCl 1 % cream 1 applic topical BID Qty: 30 0RF Follow-up/Referrals: Garo,MD Anrdes [Primary Care Provider, Unknown] - 1 Week
== END 2025-08-26 11:35 | disposition home or self-care (01) ==
PROVIDERS: Emergency Provider Emergency Medicine; PCP Family Medicine
DX: R42 Dizziness and giddiness (principal)
CPT/HCPCS: 36415; 80053; 81001; 81025; 85025; 96360; 99283; A9270; J7030